=== PATIENT | female | born 1965 | race American Indian/Alaskan Native ===

== ENCOUNTER 2017-07-11 12:48 | Outpatient (CLI) | payer BC, OTHER ==
--- NOTE | 2017-07-11 13:27 | Mammography Report ---
BILATERAL DIGITAL SCREENING MAMMOGRAM with CAD: CLINICAL: Routine screening. COMPARISON:03/31/15 FINDINGS: The breasts are almost entirely fatty. No mass, architectural distortion or suspicious calcifications. IMPRESSION: No mammographic evidence of malignancy. BI-RADS CATEGORY: 1 - - Negative RECOMMENDATION: Routine mammographic screening in one year. COMMENT: Patient follow-up letters are generated by our [employer] application.
== END 2017-07-11 12:49 | disposition home or self-care (01) ==
LOC: MAMMO 12:48
PROVIDERS: ATTEND Family Medicine
DX: Z12.31 Encounter for screening mammogram for malignant neoplasm of breast (principal)
CPT/HCPCS: 77067; G0202

== ENCOUNTER 2019-07-16 12:47 | Outpatient (CLI) | payer BC ==
--- NOTE | 2019-07-16 15:13 | Mammography Report ---
DIGITAL SCREENING MAMMOGRAM WITH CAD, 07/16/2019 INDICATION: Routine screening mammography. TECHNIQUE: Digital bilateral 2D mammography was obtained in the craniocaudal and mediolateral obliq ue projections. This examination was interpreted with the benefit of Computer-Aided Detection analysi s. COMPARISON: 07/10/2018 FINDINGS: Breast Density: The breasts are almost entirely fatty. There is no evidence of dominant mass, suspicious calcifications or architectural distortion in eithe r breast. IMPRESSION: No mammographic evidence of malignancy. Follow up recommendation: Routine yearly BI-RADS Category 1: Negative. A "normal" or negative report should not discourage follow up or biopsy of a clinically significant f inding. A written summary of these findings will be mailed to the patient. The patient will be entered into a mammography reporting system which will generate a reminder letter for the patient's next appointmen t at the appropriate interval. The [employer] recommends yearly mammograms starting at age 40 and continuing as l sarkis as a woman is in good health. Breast MRI is recommended for women with an approximate 20-25% or greater lifetime risk of breast cancer, including women with a strong family history of breast or ova racquel cancer or who have been treated for Hodgkin's disease. Signer Name: Mick Diaz MD Signed: 07/16/2019 3:08 PM Workstation Name: [id number]
== END 2019-07-16 12:48 | disposition home or self-care (01) ==
LOC: MAMMO 12:47
PROVIDERS: ATTEND Family Medicine
DX: Z12.31 Encounter for screening mammogram for malignant neoplasm of breast (principal)
CPT/HCPCS: 77067

== ENCOUNTER 2020-01-27 10:53 | Inpatient (IN) | payer BC ==
[2020-01-27] MEDS ORDERED: SODIUM CHLORIDE 0.9% 1000 ML 1,000 ML IV ONE (12:23)
[2020-01-27] MEDS ORDERED: ONDANSETRON 4 MG/2 ML INJ IV ONE ×2 (12:23→15:56)
[2020-01-27] MEDS ORDERED: MORPHINE 4 MG/1 ML INJ IV ONE (12:23)
[2020-01-27 13:06] LABS: Basophils % (Auto) 0.2 % (0.0-1.8); Eosinophils % (Auto) 0.1 % (0.0-4.3); Hematocrit 44.2 % (30.3-42.9); Hemoglobin 14.6 gm/dl (10.1-14.3); Lymphocytes # (Auto) 0.9 K/mm3 (1.2-5.4); Lymphocytes % (Auto) 11.8 % (13.4-35.0); Mean Corpuscular HGB Conc 33 % (30-34); Mean Corpuscular Volume 81 fl (79-97); Monocytes # (Auto) 0.2 K/mm3 (0.0-0.8); Monocytes % (Auto) 2.4 % (0.0-7.3); Platelet Count 267 K/mm3 (140-440); Red Blood Count 5.44 M/mm3 (3.65-5.03); Red Cell Distribution Width 14.6 % (13.2-15.2)
--- NOTE | 2020-01-27 13:23 | Emergency Department Report ---
ED Abdominal Pain HPI - General Chief Complaint: Abdominal Pain Stated Complaint: ABDOMINAL PAIN Time Seen by Provider: 01/27/20 12:18 Source: patient Mode of arrival: Ambulatory Limitations: No Limitations - History of Present Illness Initial Comments: Patient is a 54-year-old female presents emergency room with complaints of upper abdominal pain that began last night. She states it feels like a throbbing pain. She has associated nausea and one episode of vomiting last night. She denies any diarrhea, fever, urinary symptoms. She states that she had a normal bowel movement last night. She has a past abdominal surgical history of hysterectomy. She has a past medical history of hypertension. She denies any allergies to medications. She states that she rarely drinks alcohol and the last time she had alcohol was on Mother's Day. Severity scale (0 -10): 10 - Related Data Home Medications Medication Instructions Recorded Confirmed Last Taken Triamterene-Hctz 37.5-25 mg Cp 1 tab PO DAILY 01/27/20 01/27/20 1 Day Ago ~01/26/20 Allergies Allergy/AdvReac Type Severity Reaction Status Date / Time No Known Allergies Allergy Unverified 03/30/14 11:46 ED Review of Systems ROS: Stated complaint: ABDOMINAL PAIN Other details as noted in HPI Comment: All other systems reviewed and negative ED Past Medical Hx - Past Medical History Previous Medical History?: No - Surgical History Past Surgical History?: Yes Additional Surgical History: hysterectomy - Medications Home Medications: Home Medications Medication Instructions Recorded Confirmed Last Taken Type Triamterene-Hctz 37.5-25 mg Cp 1 tab PO DAILY 01/27/20 01/27/20 1 Day Ago History ~01/26/20 ED Physical Exam - General Limitations: No Limitations General appearance: alert, in no apparent distress - Head Head exam: Present: atraumatic, normocephalic - Eye Eye exam: Present: normal appearance - ENT ENT exam: Present: mucous membranes moist - Respiratory Respiratory exam: Present: normal lung sounds bilaterally. Absent: respiratory distress, wheezes, rales, rhonchi, stridor, chest wall tenderness, accessory muscle use, decreased breath sounds, prolonged expiratory - Cardiovascular Cardiovascular Exam: Present: regular rate, normal rhythm, normal heart sounds. Absent: systolic murmur, diastolic murmur, rubs, gallop - GI/Abdominal GI/Abdominal exam: Present: soft, distended, tenderness (generalized upper), hypoactive bowel sounds, other (abdomen feels firm). Absent: guarding, rebound - Neurological Exam Neurological exam: Present: alert, oriented X3 - Psychiatric Psychiatric exam: Present: normal affect, normal mood - Skin Skin exam: Present: warm, dry, intact ED Course Vital Signs 01/27/20 01/27/20 01/27/20 12:18 17:22 17:38 Temperature 98.8 F Pulse Rate 85 73 90 Respiratory 16 18 Rate Blood Pressure 185/100 Blood Pressure 198/99 156/94 [Left] O2 Sat by Pulse 95 97 Oximetry 01/27/20 18:00 Temperature Pulse Rate 89 Respiratory 18 Rate Blood Pressure Blood Pressure 159/78 [Left] O2 Sat by Pulse 98 Oximetry - Consultations Consultation #1: 01/27/20 15:[address] Guerrero, GI who states to admit patient to hospitalist service, give patient IV fluids, n.p.o., will most likely perform MRCP, states could possibly related to gallstone pancreatitis but will do further work-up while admitted 01/27/20 15:[address] Juares, hospitalist who will accept and resume care of patient, will admit patient to the hospital ED Medical Decision Making - Lab Data Result diagrams: 01/27/20 12:36 01/27/20 12:36 Lab Results 01/27/20 01/27/20 01/27/20 Range/Units 12:36 12:36 12:36 WBC 7.5 (4.5-11.0) K/mm3 RBC 5.44 H (3.65-5.03) M/mm3 Hgb 14.6 H (10.1-14.3) gm/dl Hct 44.2 H (30.3-42.9) % MCV 81 (79-97) fl MCH 27 L (28-32) pg MCHC 33 (30-34) % RDW 14.6 (13.2-15.2) % Plt Count 267 (140-440) K/mm3 Lymph % (Auto) 11.8 L (13.4-35.0) % [place] % (Auto) 2.4 (0.0-7.3) % Eos % (Auto) 0.1 (0.0-4.3) % Baso % (Auto) 0.2 (0.0-1.8) % Lymph # 0.9 L (1.2-5.4) K/mm3 [place] # 0.2 (0.0-0.8) K/mm3 Eos # 0.0 (0.0-0.4) K/mm3 Baso # 0.0 (0.0-0.1) K/mm3 Seg Neutrophils % 85.5 H (40.0-70.0) % Seg Neutrophils # 6.5 (1.8-7.7) K/mm3 Sodium 140 (137-145) mmol/L Potassium 3.8 (3.6-5.0) mmol/L Chloride 103.5 (98-107) mmol/L Carbon Dioxide 25 (22-30) mmol/L Anion Gap 15 mmol/L BUN 12 (7-17) mg/dL Creatinine 0.6 L (0.7-1.2) mg/dL Estimated GFR > 60 ml/min BUN/Creatinine Ratio 20 % Glucose 128 H (65-100) mg/dL Lactic Acid 1.40 (0.7-2.0) mmol/L Calcium 9.5 (8.4-10.2) mg/dL Total Bilirubin 2.50 H (0.1-1.2) mg/dL AST 383 H (5-40) units/L ALT 372 H (7-56) units/L Alkaline Phosphatase 217 H (35-129) units/L Total Protein 7.0 (6.3-8.2) g/dL Albumin 4.1 (3.9-5) g/dL Albumin/Globulin Ratio 1.4 % Lipase 2069 H (13-60) units/L - Radiology Data Radiology results: report reviewed CT ABDOMEN AND PELVIS WITH CONTRAST INDICATION / CLINICAL INFORMATION: upper abd pain, n/v. TECHNIQUE: Axial CT images were obtained through the abdomen and pelvis after 100 cc Omnipaque 300 milligrams percent IV contrast. All CT scans at this location are performed using CT dose reduction for ALARA by means of automated exposure control. COMPARISON: None available. FINDINGS: LOWER CHEST: Diffuse prominent interstitial markings are present. LIVER: No significant abnormality. GALLBLADDER: No significant abnormality. BILE DUCTS: Mild dilatation of the biliary ducts present. The common bile duct measures 1.2 cm PANCREAS: Small amount of fluid with reticulation of fat surrounding the pancreas SPLEEN: No significant abnormality. ADRENALS: No significant abnormality. RIGHT KIDNEY and URETER: No significant abnormality. LEFT KIDNEY and URETER: No significant abnormality. STOMACH and SMALL BOWEL: No significant abnormality. COLON: No significant abnormality. APPENDIX: No significant abnormality. PERITONEUM: No free fluid. No free air. No fluid collection. LYMPH NODES: No significant adenopathy. AORTA and ARTERIES: No significant abnormality. IVC and VEINS: No significant abnormality. URINARY BLADDER: No significant abnormality. REPRODUCTIVE ORGANS: No significant abnormality. ADDITIONAL FINDINGS: None. SKELETAL SYSTEM: No significant abnormality. IMPRESSION: 1. Inflammatory changes right upper quadrant-mid and upper quadrant with dilatation of the biliary duct system, acute pancreatitis is a concern. Correlation with lipase is recommended Signer Name: Elvis Turner MD Signed: 01/27/2020 2:56 PM Workstation Name: [id number] Transcribed By: CLIFTON Dictated By: Elvis Turner MD Electronically Authenticated By: Elvis Turner MD Signed Date/Time: 01/27/20 1456 DD/ 1438 TD/TT: - Medical Decision Making Patient is a 54-year-old female presents emergency room with complaints of upper abdominal pain that began last night. She states it feels like a throbbing pain. She has associated nausea and one episode of vomiting last night. She denies any diarrhea, fever, urinary symptoms. She states that she had a normal bowel movement last night. She has a past abdominal surgical history of hysterectomy. She has a past medical history of hypertension. She denies any allergies to medications. She states that she rarely drinks alcohol and the last time she had alcohol was on Mother's Day. VSS. on exam: Generalized upper tenderness palpation, abdomen is distended and firm, no guarding, no rebound, bowel sounds are hypoactive. Labs significant for elevated LFTs and elevated lipase. CT abd pelvis with IV contrast: 1. Inflammatory changes right upper quadrant-mid and upper quadrant with dilatation of the biliary duct system, acute pancreatitis is a concern. Correlation with lipase is recommended. Patient given IV fluids, pain medication, nausea medication. Spoke to Dr. Guerrero GI who states to admit patient to hospitalist service, give patient IV fluids, n.p.o., will most likely perform MRCP, states could possibly related to gallstone pancreatitis but will do further work-up while admitted. Spoke to Dr. Juares, hospitalist who will accept and resume care of patient, will admit patient to the hospital - Differential Diagnosis pancreatitis, obstruction, cholecystitis, cholelithiasis, choleldocholithia Critical care attestation.: If time is entered above; I have spent that time in minutes in the direct care of this critically ill patient, excluding procedure time. ED Disposition Clinical Impression: Dilated bile duct, Elevated LFTs Pancreatitis Qualifiers: Chronicity: acute Pancreatitis type: unspecified pancreatitis type Acute pancreatitis complication: no infection or necrosis Qualified Code(s): K85.90 - Acute pancreatitis without necrosis or infection, unspecified Abdominal pain Qualifiers: Abdominal location: epigastric Qualified Code(s): R10.13 - Epigastric pain Nausea & vomiting Qualifiers: Vomiting type: unspecified Vomiting Intractability: non-intractable Qualified Code(s): R11.2 - Nausea with vomiting, unspecified Disposition: DC-09 OP ADMIT IP TO THIS HOSP Is pt being admited?: Yes Does the pt Need Aspirin: No Condition: Fair Time of Disposition: 15:57
[2020-01-27 13:39] LABS: Alanine Aminotransferase 372 units/L (7-56); Albumin 4.1 g/dL (3.9-5); BUN/Creatinine Ratio 20; Blood Urea Nitrogen 12 mg/dL (7-17); Calcium 9.5 mg/dL (8.4-10.2); Hemolysis Index 15
--- NOTE | 2020-01-27 15:00 | Cat Scan Report ---
CT ABDOMEN AND PELVIS WITH CONTRAST INDICATION / CLINICAL INFORMATION: upper abd pain, n/v. TECHNIQUE: Axial CT images were obtained through the abdomen and pelvis after 100 cc Omnipaque 300 milligrams pe rcent IV contrast. All CT scans at this location are performed using CT dose reduction for ALARA by means of automated exposure control. COMPARISON: None available. FINDINGS: LOWER CHEST: Diffuse prominent interstitial markings are present. LIVER: No significant abnormality. GALLBLADDER: No significant abnormality. BILE DUCTS: Mild dilatation of the biliary ducts present. The common bile duct measures 1.2 cm PANCREAS: Small amount of fluid with reticulation of fat surrounding the pancreas SPLEEN: No significant abnormality. ADRENALS: No significant abnormality. RIGHT KIDNEY and URETER: No significant abnormality. LEFT KIDNEY and URETER: No significant abnormality. STOMACH and SMALL BOWEL: No significant abnormality. COLON: No significant abnormality. APPENDIX: No significant abnormality. PERITONEUM: No free fluid. No free air. No fluid collection. LYMPH NODES: No significant adenopathy. AORTA and ARTERIES: No significant abnormality. IVC and VEINS: No significant abnormality. URINARY BLADDER: No significant abnormality. REPRODUCTIVE ORGANS: No significant abnormality. ADDITIONAL FINDINGS: None. SKELETAL SYSTEM: No significant abnormality. IMPRESSION: 1. Inflammatory changes right upper quadrant-mid and upper quadrant with dilatation of the biliary du ct system, acute pancreatitis is a concern. Correlation with lipase is recommended Signer Name: Elvis Turner MD Signed: 01/27/2020 2:56 PM Workstation Name: [id number], [id number]
[2020-01-27] MEDS ORDERED: HYDROmorphone 1 MG/1 ML INJ IV ONE (15:56)
--- NOTE | 2020-01-27 15:56 | History and Physical Report ---
History of Present Illness Chief complaint: My stomach is hurting me History of present illness: 54 YO Female presents to the ED for evaluation of abdominal pain. Patient states that her pain began last night. Patient states that pain is currently 10/10, constant, throbbing in nature, associated with nausea, and one episode of vomiting overnight. Patient acknowledges inability to ingest oral diet without worsening symptoms, patient also acknowledges normal bowel movement overnight. Patient transported to [facility] via private vehicle for further care and evaluation. Patient seen and evaluated in the emergency department. Lab and imaging studies reviewed. Patient underwent CT scan of the abdomen and pelvis and was found to have evidence of gallstone pancreatitis, as well as accelerated hypertension, and elevated liver function test. Patient admitted to medical floor for further care due to increased risk of hepatic decompensation. GI team consulted in ED. Patient denies fever, chills, chest pain, palpitations, productive cough, skin rash, hematemesis, bright red blood per rectum, skin rash, recent ill contacts, alcohol use, NSAID use, or known exposure to COVID-19. Patient treated with bowel rest, IV fluid resuscitation therapy, and supportive care. Past History Past Medical History: No medical history Past Surgical History: hysterectomy Social history: , lives with family. denies: smoking, alcohol abuse, prescription drug abuse Family history: hypertension Medications and Allergies Allergies Allergy/AdvReac Type Severity Reaction Status Date / Time No Known Allergies Allergy Unverified 03/30/14 11:46 Review of Systems Constitutional: no weight loss, no weight gain, no fever, no chills, no sweats Ears, nose, mouth and throat: no ear pain, no ear discharge, no tinnitis, no decreased hearing, no nose pain, no nasal congestion Breasts: no change in shape, no swelling, no mass Cardiovascular: no chest pain, no orthopnea, no palpitations, no rapid/irregular heart beat, no edema, no syncope Respiratory: no cough, no cough with sputum, no excessive sputum, no hemoptysis, no shortness of breath Gastrointestinal: abdominal pain, nausea, vomiting, no coffee ground emesis, no BRBPR, no melena, no heartburn, no indigestion Genitourinary Female: no pelvic pain, no flank pain, no menorrhagia, no dysuria, no urinary frequency, no urgency Rectal: no pain, no incontinence, no bleeding Musculoskeletal: no neck stiffness, no neck pain, no shooting arm pain, no arm numbness/tingling, no low back pain, no shooting leg pain, no leg numbness/tingling Integumentary: no rash, no pruritis, no redness, no sores, no wounds, no jaundice Neurological: no transient paralysis, no paralysis, no weakness, no parathesias, no numbness, no tingling, no seizures, no syncope Psychiatric: no anxiety, no memory loss, no change in sleep habits, no sleep disturbances, no insomnia, no hypersomnia, no change in appetite Endocrine: no cold intolerance, no heat intolerance, no polyphagia, no excessive thirst, no polydipsia, no polyuria, no nocturia, no excessive sweating Hematologic/Lymphatic: no easy bruising, no easy bleeding, no lymphadenopathy, no lymphedema Allergic/Immunologic: no urticaria, no allergic rhinitis, no persistent infect ions, no anaphylaxis Exam - Constitutional Vitals: Temp Pulse Resp BP Pulse Ox 98.8 F 85 16 198/99 95 01/27/20 12:18 01/27/20 12:18 01/27/20 12:18 01/27/20 12:18 01/27/20 12:18 General appearance: Present: mild distress - EENT Eyes: Present: PERRL ENT: hearing intact, clear oral mucosa - Neck Neck: Present: supple, normal ROM - Respiratory Respiratory effort: normal Respiratory: bilateral: CTA - Cardiovascular Heart Sounds: Present: S1 & S2. Absent: rub, click - Extremities Extremities: pulses symmetrical, No edema Peripheral Pulses: within normal limits - Abdominal General gastrointestinal: Present: soft, tender, non-distended, normal bowel sounds Localized gastrointestinal: tender: RUQ Female genitourinary: Present: normal - Integumentary Integumentary: Present: clear, warm, dry - Musculoskeletal Musculoskeletal: gait normal, strength equal bilaterally - Psychiatric Psychiatric: appropriate mood/affect, intact judgment & insight - Neurologic Neurologic: CNII-XII intact, moves all extremities Results - Labs CBC & Chem 7: 01/27/20 12:36 01/27/20 12:36 Labs: Abnormal lab results 01/27/20 01/27/20 Range/Units 12:36 12:36 RBC 5.44 H (3.65-5.03) M/mm3 Hgb 14.6 H (10.1-14.3) gm/dl Hct 44.2 H (30.3-42.9) % MCH 27 L (28-32) pg Lymph % (Auto) 11.8 L (13.4-35.0) % Lymph # 0.9 L (1.2-5.4) K/mm3 Seg Neutrophils % 85.5 H (40.0-70.0) % Creatinine 0.6 L (0.7-1.2) mg/dL Glucose 128 H (65-100) mg/dL Total Bilirubin 2.50 H (0.1-1.2) mg/dL AST 383 H (5-40) units/L ALT 372 H (7-56) units/L Alkaline Phosphatase 217 H (35-129) units/L Lipase 2069 H (13-60) units/L Assessment and Plan - Patient Problems (1) Acute gallstone pancreatitis Current Visit: Yes Status: Acute Plan to address problem: CT scan of the abdomen and pelvis, CBC, CMP, gastroenterology team consulted in ED, IV fluid resuscitation therapy, further investigational studies as per GI team, bowel rest, pain control, supportive care. (2) Accelerated hypertension Current Visit: Yes Status: Acute Plan to address problem: IV hydralazine every 6 hours as needed for systolic blood pressure greater than or equal to 155, supportive care (3) Elevated LFTs Current Visit: Yes Status: Acute Plan to address problem: CMP, supportive care, repeat CMP in a.m. (4) Nausea & vomiting Current Visit: Yes Status: Acute Qualifiers: Vomiting type: unspecified Vomiting Intractability: non-intractable Qualified Code(s): R11.2 - Nausea with vomiting, unspecified Plan to address problem: Zofran, as needed, bowel rest, IV fluid resuscitation therapy, supportive care. (5) DVT prophylaxis Current Visit: Yes Status: Acute Plan to address problem: SCD to bilateral lower extremities while in bed, patient is ambulatory.
[2020-01-27] MEDS ORDERED: ONDANSETRON 4 MG/2 ML INJ IV PRN (16:02)
--- NOTE | 2020-01-27 16:41 | Gastroenterology Consultation ---
History of Present Illness - Reason for Consult Consult date: 01/27/20 acute pancreatitis Requesting physician: MICHELLE MULLER - History of Present Illness The patient is a 54 yo aaf who presents with 1 day history of abdominal pain. Pt was in her usual state of health until sudden onset of mid abd pain yesterday. this worsened overnight and radiates to her epigastric abdomen. Denies prior similar symptoms. Patient found to have elevated liver enzymes and lipase > [address] showing signs of acute pancreatitis and biliary dilatation. Afebrile, normal wbc with stable vital signs. Past History Past Medical History: No medical history Past Surgical History: hysterectomy Social history: no significant social history Family history: no significant family history Medications and Allergies Allergies Allergy/AdvReac Type Severity Reaction Status Date / Time No Known Allergies Allergy Unverified 03/30/14 11:46 Active Meds: Active Medications Acetaminophen (Tylenol) 650 mg PO Q4H PRN PRN Reason: Pain MILD(1-3)/Fever >100.5/MIRELES Hydralazine HCl (Apresoline) 10 mg IV Q6HR PRN PRN Reason: Hypertension Hydromorphone HCl (Dilaudid) 0.25 mg IV Q3H PRN PRN Reason: Pain , Severe (7-10) Ondansetron HCl (Zofran) 4 mg IV Q8H PRN PRN Reason: Nausea And Vomiting Sodium Chloride (Sodium Chloride Flush Syringe 10 Ml) 10 ml IV BID DENA Sodium Chloride (Sodium Chloride Flush Syringe 10 Ml) 10 ml IV PRN PRN PRN Reason: LINE FLUSH reviewed/updated patient's home and current medications Review of Systems - Review of Systems All systems: negative (per HPI) Exam - Constitutional Vital Signs: Temp Pulse Resp BP Pulse Ox 98.8 F 85 16 198/99 95 01/27/20 12:18 01/27/20 12:18 01/27/20 12:18 01/27/20 12:18 01/27/20 12:18 General appearance: no acute distress, other (overweight female, resting comfortably) - EENT Eyes: PERRL, EOM intact - Respiratory Respiratory effort: normal Respiratory: bilateral: CTA - Cardiovascular Rhythm: regular Heart Sounds: Present: S1 & S2 Extremities: No edema - Gastrointestinal General gastrointestinal: Present: soft, tender (mild epigastric ttp), non- distended - Neurologic Neurological: alert and oriented x3 - Psychiatric Psychiatric: appropriate mood/affect - Labs CBC & Chem 7: 01/27/20 12:36 01/27/20 12:36 Lab Results: Laboratory Results - last 24 hr 01/27/20 01/27/20 01/27/20 12:36 12:36 12:36 WBC 7.5 RBC 5.44 H Hgb 14.6 H Hct 44.2 H MCV 81 MCH 27 L MCHC 33 RDW 14.6 Plt Count 267 Lymph % (Auto) 11.8 L [place] % (Auto) 2.4 Eos % (Auto) 0.1 Baso % (Auto) 0.2 Lymph # 0.9 L [place] # 0.2 Eos # 0.0 Baso # 0.0 Seg Neutrophils % 85.5 H Seg Neutrophils # 6.5 Sodium 140 Potassium 3.8 Chloride 103.5 Carbon Dioxide 25 Anion Gap 15 BUN 12 Creatinine 0.6 L Estimated GFR > 60 BUN/Creatinine Ratio 20 Glucose 128 H Lactic Acid 1.40 Calcium 9.5 Total Bilirubin 2.50 H AST 383 H ALT 372 H Alkaline Phosphatase 217 H Total Protein 7.0 Albumin 4.1 Albumin/Globulin Ratio 1.4 Lipase 2069 H - Imaging CT Scan: report reviewed Assessment and Plan 1. Biliary pancreatitis - cont IVF's/pain control/supportive care for acute pancreatitis; dilated ducts on ct scan and given pattern of liver enzyme elevation, will obtain mrcp to evaluate for retained stones/obstructive process. No signs of cholangitis at this time. trend labs and will follow. will need eventual surgery consult for ccy once improved.
[2020-01-27 17:13] LABS: Bilirubin,Urine NEG (Negative); Blood,Urine NEG (Negative); Color,Urine Yellow (Yellow); Mucus,Urine FEW /HPF; Protein,Urine <15 mg/dL mg/dL (Negative); Urobilinogen,Urine < 2.0 mg/dL (<2.0)
[2020-01-27] MEDS ORDERED: HYDROmorphone 1 MG/1 ML INJ ONE (17:18)
[2020-01-27] MEDS ORDERED: hydrALAZINE 20 MG/1 ML INJ ONE (17:19)
[2020-01-27] MEDS: hydrALAZINE 20 MG/1 ML INJ IV PRN (17:22)
[2020-01-27] MEDS: HYDROmorphone 1 MG/1 ML INJ IV PRN ×2 (17:26→22:44)
[2020-01-28] MEDS: HYDROmorphone 1 MG/1 ML INJ IV PRN ×5 (03:10→22:07)
[2020-01-28 05:22] LABS: Basophils % (Auto) 0.3 % (0.0-1.8); Eosinophils % (Auto) 0.2 % (0.0-4.3); Hematocrit 40.2 % (30.3-42.9); Hemoglobin 13.3 gm/dl (10.1-14.3); Lymphocytes # (Auto) 1.1 K/mm3 (1.2-5.4); Lymphocytes % (Auto) 11.6 % (13.4-35.0); Mean Corpuscular HGB Conc 33 % (30-34); Mean Corpuscular Volume 81 fl (79-97); Monocytes # (Auto) 0.4 K/mm3 (0.0-0.8); Monocytes % (Auto) 4.2 % (0.0-7.3); Platelet Count 270 K/mm3 (140-440); Red Blood Count 4.93 M/mm3 (3.65-5.03); Red Cell Distribution Width 15.1 % (13.2-15.2)
[2020-01-28 05:39] LABS: BUN/Creatinine Ratio 22; Blood Urea Nitrogen 13 mg/dL (7-17); Hemolysis Index 14
--- NOTE | 2020-01-28 11:01 | Magnetic Resonance Report ---
MRCP INDICATION: Biliary dilatation elevated liver enzymes, nausea vomiting and upper abdominal pain TECHNIQUE: Axial and coronal imaging is performed. Radial MRCP images were obtained. FINDINGS: There is a filling defect noted in the distal common duct. The common bile duct is dilated measuring approximately 13 mm in diameter. There is mild central intrahepatic biliary dilatation. There is cholelithiasis. There is stranding in the fat around the pancreas characteristic of pancreatitis. There is some fluid noted along the right anterior pararenal fascia as well. There is mild perinephric edema. . There is a small amount of left pleural fluid. IMPRESSION: There is a small filling defect in the distal common duct possibly representing a small stone. There is cholelithiasis. There is edema and around the pancreas and there is edema in the right anterior pararenal fascia ivan acteristic of pancreatitis. There is a small amount of free fluid adjacent to the liver and there is mild perinephric edema. Signer Name: Mark Anthony Ross MD Signed: 01/28/2020 10:57 AM Workstation Name: [id number]
[2020-01-28] MEDS: ACETAMINOPHEN 325 MG TAB PO PRN ×2 (12:25→22:06)
[2020-01-28 15:43] LABS: Albumin 3.7 g/dL (3.9-5); Bilirubin,Direct 4.1 mg/dL (0-0.2)
--- NOTE | 2020-01-28 16:21 | Gastroenterology Progress Note ---
Assessment and Plan 1. Biliary pancreatitis on presentation, now concern for possible cholangitis with fevers, increasing t bili and biliary dilatation/cbd stone on mrcp. zosyn started, cont IVF's, and keep npo as patient will likely need ercp (plan for tomorrow if remains HD stable). Subjective Date of service: 01/28/20 Principal diagnosis: biliary pancreatitis Interval history: pt with worsening abd pain today; developed fevers as well. Objective - Constitutional Vitals: Temp Pulse Resp BP Pulse Ox 101.0 F H 109 H 24 145/76 93 01/28/20 11:15 01/28/20 11:15 01/28/20 11:15 01/28/20 11:15 01/28/20 11:15 General appearance: no acute distress, obese - Respiratory Respiratory effort: normal Respiratory: bilateral: CTA - Cardiovascular Rhythm: regular Heart Sounds: Present: S1 & S2 - Gastrointestinal General gastrointestinal: Present: soft, tender (+ epigastric/ruq ttp) - Neurologic Neurological: alert and oriented x3 - Labs CBC & Chem 7: 01/28/20 04:24 01/28/20 04:24 Labs: Laboratory Results - last 24 hr 01/27/20 01/28/20 01/28/20 16:59 04:24 04:24 WBC 9.1 RBC 4.93 Hgb 13.3 Hct 40.2 MCV 81 MCH 27 L MCHC 33 RDW 15.1 Plt Count 270 Lymph % (Auto) 11.6 L [place] % (Auto) 4.2 Eos % (Auto) 0.2 Baso % (Auto) 0.3 Lymph # 1.1 L [place] # 0.4 Eos # 0.0 Baso # 0.0 Seg Neutrophils % 83.7 H Seg Neutrophils # 7.6 Sodium 144 Potassium 3.6 Chloride 106.8 Carbon Dioxide 26 Anion Gap 15 BUN 13 Creatinine 0.6 L Estimated GFR > 60 BUN/Creatinine Ratio 22 Glucose 110 H Calcium 9.0 Total Bilirubin Direct Bilirubin Indirect Bilirubin AST ALT Alkaline Phosphatase Total Protein Albumin Albumin/Globulin Ratio Urine Color Yellow Urine Turbidity Clear Urine pH 5.0 Ur Specific [place] 1.020 Urine Protein <15 mg/dl Urine Glucose (UA) Neg Urine Ketones Neg Urine Blood Neg Urine Nitrite Neg Urine Bilirubin Neg Urine Urobilinogen < 2.0 Ur Leukocyte Esterase Neg Urine WBC (Auto) 2.0 Urine RBC (Auto) 2.0 U Epithel Cells (Auto) 2.0 Urine Mucus Few 01/28/20 15:08 WBC RBC Hgb Hct MCV MCH MCHC RDW Plt Count Lymph % (Auto) [place] % (Auto) Eos % (Auto) Baso % (Auto) Lymph # [place] # Eos # Baso # Seg Neutrophils % Seg Neutrophils # Sodium Potassium Chloride Carbon Dioxide Anion Gap BUN Creatinine Estimated GFR BUN/Creatinine Ratio Glucose Calcium Total Bilirubin 5.10 H Direct Bilirubin 4.1 H Indirect Bilirubin 1.0 AST 178 H ALT 311 H Alkaline Phosphatase 271 H Total Protein 7.2 Albumin 3.7 L Albumin/Globulin Ratio 1.1 Urine Color Urine Turbidity Urine pH Ur Specific [place] Urine Protein Urine Glucose (UA) Urine Ketones Urine Blood Urine Nitrite Urine Bilirubin Urine Urobilinogen Ur Leukocyte Esterase Urine WBC (Auto) Urine RBC (Auto) U Epithel Cells (Auto) Urine Mucus
[2020-01-28] MEDS ORDERED: HYDROmorphone 1 MG/1 ML INJ IV ONE (16:44)
[2020-01-28] MEDS: PIPERACIL/TAZOBACTA 4.5/NS 100 4.5 GM/100 ML VIAL IV SCH (18:25)
--- NOTE | 2020-01-28 20:10 | Progress Note ---
Assessment and Plan - Patient Problems (1) Acute gallstone pancreatitis Current Visit: Yes Status: Acute Plan to address problem: CT scan of the abdomen and pelvis reviewed, CBC, CMP, gastroenterology team consulted in ED, IV fluid resuscitation therapy, further investigational studies as per GI team, bowel rest, pain control, supportive care. Patient is pending ERCP in a.m. as per GI team (2) Accelerated hypertension Current Visit: Yes Status: Acute Plan to address problem: IV hydralazine every 6 hours as needed for systolic blood pressure greater than or equal to 155, supportive care (3) Elevated LFTs Current Visit: Yes Status: Acute Plan to address problem: CMP, supportive care, repeat CMP in a.m. (4) Nausea & vomiting Current Visit: Yes Status: Acute Qualifiers: Vomiting type: unspecified Vomiting Intractability: non-intractable Qualified Code(s): R11.2 - Nausea with vomiting, unspecified Plan to address problem: Zofran, as needed, bowel rest, IV fluid resuscitation therapy, supportive care. (5) DVT prophylaxis Current Visit: Yes Status: Acute Plan to address problem: SCD to bilateral lower extremities while in bed, patient is ambulatory. History Interval history: 54 YO Female HD #2 with Gallstone Pancreatitis, Elevated LFT's, complicated by nausea and vomiting. Patient states that her pain is subjectively somewhat worse today. Patient denies fever, chills, chest pain, palpitations, productive cough, recent ill contacts. Patient is still n.p.o. and acknowledges intermittent nausea. Patient liver function tests are improving somewhat however patient bilirubin is elevated. Patient is pending ERCP in a.m. as per GI team. Patient acknowledges worsening abdominal pain. Hospitalist Physical - Constitutional Vitals: Temp Pulse Resp BP Pulse Ox 99.0 F 102 H 24 165/75 94 01/28/20 16:53 01/28/20 16:53 01/28/20 16:53 01/28/20 16:53 01/28/20 16:53 General appearance: Present: mild distress, obese - EENT Eyes: Present: PERRL ENT: hearing intact - Neck Neck: Present: supple - Respiratory Respiratory effort: normal Respiratory: bilateral: CTA - Cardiovascular Rhythm: regular Heart Sounds: Present: S1 & S2 - Extremities Extremities: no ischemia Peripheral Pulses: within normal limits - Abdominal General gastrointestinal: soft, tender, non-distended, no mass, no hernia - Integumentary Integumentary: Present: clear, warm, dry - Psychiatric Psychiatric: appropriate mood/affect, cooperative - Neurologic Neurologic: CNII-XII intact Results - Labs CBC & Chem 7: 01/28/20 04:24 01/28/20 04:24 Labs: Laboratory Last Values WBC 9.1 K/mm3 (4.5-11.0) 01/28/20 04:24 RBC 4.93 M/mm3 (3.65-5.03) 01/28/20 04:24 Hgb 13.3 gm/dl (10.1-14.3) 01/28/20 04:24 Hct 40.2 % (30.3-42.9) 01/28/20 04:24 MCV 81 fl (79-97) 01/28/20 04:24 MCH 27 pg (28-32) L 01/28/20 04:24 MCHC 33 % (30-34) 01/28/20 04:24 RDW 15.1 % (13.2-15.2) 01/28/20 04:24 Plt Count 270 K/mm3 (140-440) 01/28/20 04:24 Lymph % (Auto) 11.6 % (13.4-35.0) L 01/28/20 04:24 [place] % (Auto) 4.2 % (0.0-7.3) 01/28/20 04:24 Eos % (Auto) 0.2 % (0.0-4.3) 01/28/20 04:24 Baso % (Auto) 0.3 % (0.0-1.8) 01/28/20 04:24 Lymph # 1.1 K/mm3 (1.2-5.4) L 01/28/20 04:24 [place] # 0.4 K/mm3 (0.0-0.8) 01/28/20 04:24 Eos # 0.0 K/mm3 (0.0-0.4) 01/28/20 04:24 Baso # 0.0 K/mm3 (0.0-0.1) 01/28/20 04:24 Seg Neutrophils % 83.7 % (40.0-70.0) H 01/28/20 04:24 Seg Neutrophils # 7.6 K/mm3 (1.8-7.7) 01/28/20 04:24 Sodium 144 mmol/L (137-145) 01/28/20 04:24 Potassium 3.6 mmol/L (3.6-5.0) 01/28/20 04:24 Chloride 106.8 mmol/L (98-107) 01/28/20 04:24 Carbon Dioxide 26 mmol/L (22-30) 01/28/20 04:24 Anion Gap 15 mmol/L 01/28/20 04:24 BUN 13 mg/dL (7-17) 01/28/20 04:24 Creatinine 0.6 mg/dL (0.7-1.2) L 01/28/20 04:24 Estimated GFR > 60 ml/min 01/28/20 04:24 BUN/Creatinine Ratio 22 % 01/28/20 04:24 Glucose 110 mg/dL (65-100) H 01/28/20 04:24 Lactic Acid 1.40 mmol/L (0.7-2.0) 01/27/20 12:36 Calcium 9.0 mg/dL (8.4-10.2) 01/28/20 04:24 Total Bilirubin 5.10 mg/dL (0.1-1.2) H 01/28/20 15:08 Direct Bilirubin 4.1 mg/dL (0-0.2) H 01/28/20 15:08 Indirect Bilirubin 1.0 mg/dL 01/28/20 15:08 AST 178 units/L (5-40) H 01/28/20 15:08 ALT 311 units/L (7-56) H 01/28/20 15:08 Alkaline Phosphatase 271 units/L (35-129) H 01/28/20 15:08 Total Protein 7.2 g/dL (6.3-8.2) 01/28/20 15:08 Albumin 3.7 g/dL (3.9-5) L 01/28/20 15:08 Albumin/Globulin Ratio 1.1 % 01/28/20 15:08 Lipase 2069 units/L (13-60) H 01/27/20 12:36 Urine Color Yellow (Yellow) 01/27/20 16:59 Urine Turbidity Clear (Clear) 01/27/20 16:59 Urine pH 5.0 (5.0-7.0) 01/27/20 16:59 Ur Specific [place] 1.020 (1.003-1.030) 01/27/20 16:59 Urine Protein <15 mg/dl mg/dL (Negative) 01/27/20 16:59 Urine Glucose (UA) Neg mg/dL (Negative) 01/27/20 16:59 Urine Ketones Neg mg/dL (Negative) 01/27/20 16:59 Urine Blood Neg (Negative) 01/27/20 16:59 Urine Nitrite Neg (Negative) 01/27/20 16:59 Urine Bilirubin Neg (Negative) 01/27/20 16:59 Urine Urobilinogen < 2.0 mg/dL (<2.0) 01/27/20 16:59 Ur Leukocyte Esterase Neg (Negative) 01/27/20 16:59 Urine WBC (Auto) 2.0 /HPF (0.0-6.0) 01/27/20 16:59 Urine RBC (Auto) 2.0 /HPF (0.0-6.0) 01/27/20 16:59 U Epithel Cells (Auto) 2.0 /HPF (0-13.0) 01/27/20 16:59 Urine Mucus Few /HPF 01/27/20 16:59 [place]/IV: Voiding Method Toilet IV Catheter Type [Left INT / Saline Lock Antecubital] Active Medications - Current Medications Current Medications: Generic Name Dose Route Start Last Admin Trade Name Freq PRN Reason Stop Dose Admin Acetaminophen 650 mg 01/27/20 16:02 01/28/20 12:25 Tylenol PO 650 mg Q4H PRN Administration Pain MILD(1-3)/Fever >100.5/MIRELES Hydralazine HCl 10 mg 01/27/20 16:06 01/27/20 17:22 Apresoline IV 10 mg Q6HR PRN Administration Hypertension Hydromorphone HCl 0.25 mg 01/27/20 16:06 01/28/20 14:55 Dilaudid IV 0.25 mg Q3H PRN Administration Pain , Severe (7-10) Piperacillin Sod/Tazobactam Sod 4.5 gm in 100 mls @ 200 mls/hr 01/28/20 18:00 01/28/20 18:25 Zosyn/Ns 4.5gm/100ml IV 200 mls/hr Q8H DENA Administration Protocol Metronidazole 500 mg in 100 mls @ 100 mls/hr 01/28/20 22:00 Flagyl 500 Mg/100 Ml IV Q8HR DENA Protocol Ondansetron HCl 4 mg 01/27/20 16:02 Zofran IV Q8H PRN Nausea And Vomiting Sodium Chloride 10 ml 01/27/20 22:00 01/28/20 11:00 Sodium Chloride Flush Syringe 10 Ml IV 10 ml BID DENA Administration Sodium Chloride 10 ml 01/27/20 16:02 Sodium Chloride Flush Syringe 10 Ml IV PRN PRN LINE FLUSH
[2020-01-28] MEDS: hydrALAZINE 20 MG/1 ML INJ IV PRN (22:05)
[2020-01-28] MEDS: metroNIDAZOLE/NS 500 MG/100 ML 500 MG/100 ML BAG IV SCH (22:08)
[2020-01-29] MEDS: HYDROmorphone 1 MG/1 ML INJ IV PRN ×7 (02:12→23:21)
[2020-01-29] MEDS: PIPERACIL/TAZOBACTA 4.5/NS 100 4.5 GM/100 ML VIAL IV SCH ×3 (02:13→19:05)
[2020-01-29 05:50] LABS: Basophils % (Auto) 0.2 % (0.0-1.8); Eosinophils % (Auto) 0.4 % (0.0-4.3); Hematocrit 40.1 % (30.3-42.9); Lymphocytes # (Auto) 1.2 K/mm3 (1.2-5.4); Mean Corpuscular HGB Conc 32 % (30-34); Mean Corpuscular Volume 82 fl (79-97); Monocytes # (Auto) 0.6 K/mm3 (0.0-0.8); Monocytes % (Auto) 5.7 % (0.0-7.3); Platelet Count 242 K/mm3 (140-440); Red Blood Count 4.88 M/mm3 (3.65-5.03)
[2020-01-29] MEDS: metroNIDAZOLE/NS 500 MG/100 ML 500 MG/100 ML BAG IV SCH (05:58)
[2020-01-29 06:55] LABS: Alanine Aminotransferase 226 units/L (7-56); Albumin 3.6 g/dL (3.9-5); BUN/Creatinine Ratio 20; Blood Urea Nitrogen 12 mg/dL (7-17); Calcium 8.8 mg/dL (8.4-10.2); Hemolysis Index 14
--- NOTE | 2020-01-29 08:07 | Gastroenterology Progress Note ---
Assessment and Plan 1. Biliary pancreatitis - liver enzymes improving. HD stable. sx's appear better today. no urgent indication for ercp and if labs cont to improve, then ccy with IOC would be reasonable (as stone was small on mrcp and possibility it has passed given improved liver enzymes). will start clears today. cont zosyn. recommend surgery consult as she will need eventual ccy when pancreatitis improves. Subjective Date of service: 01/29/20 Principal diagnosis: biliary pancreatitis Interval history: pt reports improvement in abd pain today; low grade fevers but wbc remains within normal range. no n/v Objective - Constitutional Vitals: Temp Pulse Resp BP Pulse Ox 100.3 F H 114 H 20 150/78 92 01/29/20 05:38 01/29/20 05:38 01/29/20 05:57 01/29/20 05:38 01/29/20 05:38 General appearance: no acute distress - Respiratory Respiratory effort: normal Respiratory: bilateral: CTA - Cardiovascular Rhythm: regular Heart Sounds: Present: S1 & S2 - Gastrointestinal General gastrointestinal: Present: soft, non-tender, non-distended - Labs CBC & Chem 7: 01/29/20 05:04 01/29/20 05:04 Labs: Laboratory Results - last 24 hr 01/28/20 01/29/20 01/29/20 15:08 05:04 05:04 WBC 11.0 RBC 4.88 Hgb 13.0 Hct 40.1 MCV 82 MCH 27 L MCHC 32 RDW 15.0 Plt Count 242 Lymph % (Auto) 11.0 L [place] % (Auto) 5.7 Eos % (Auto) 0.4 Baso % (Auto) 0.2 Lymph # 1.2 [place] # 0.6 Eos # 0.0 Baso # 0.0 Seg Neutrophils % 82.7 H Seg Neutrophils # 9.1 H Sodium 145 Potassium 3.2 L [place] 84.7 L Carbon Dioxide 24 Anion Gap 19 BUN 12 Creatinine 0.6 L Estimated GFR > 60 BUN/Creatinine Ratio 20 Glucose 111 H Calcium 8.8 Total Bilirubin 5.10 H 1.30 H Direct Bilirubin 4.1 H Indirect Bilirubin 1.0 AST 178 H 94 H ALT 311 H 226 H Alkaline Phosphatase 271 H 239 H Total Protein 7.2 7.4 Albumin 3.7 L 3.6 L Albumin/Globulin Ratio 1.1 0.9 Lipase 541 H
[2020-01-29] MEDS: hydrALAZINE 20 MG/1 ML INJ IV PRN (09:31)
--- NOTE | 2020-01-29 12:02 | Progress Note ---
Assessment and Plan - Patient Problems (1) Acute gallstone pancreatitis Status: Acute Plan to address problem: Surgical team consulted, IV fluid resuscitation therapy,. Conservative care, advance diet as tolerated, GI consulted for further care, Surgery team consulted (2) Accelerated hypertension Status: Acute Plan to address problem: IV hydralazine every 6 hours as needed for systolic blood pressure greater than or equal to 155, supportive care (3) Elevated LFTs Status: Acute Plan to address problem: CMP, supportive care, repeat CMP in a.m. (4) Nausea & vomiting Status: Acute Qualifiers: Vomiting type: unspecified Vomiting Intractability: non-intractable Qualified Code(s): R11.2 - Nausea with vomiting, unspecified Plan to address problem: Zofran, as needed, bowel rest, IV fluid resuscitation therapy, supportive care. (5) DVT prophylaxis Status: Acute Plan to address problem: SCD to bilateral lower extremities while in bed, patient is ambulatory. (6) Morbid (severe) obesity due to excess calories Status: Acute Plan to address problem: Balanced diet, increased physical activity at discharge, (7) SIRS due to infectious process with acute organ dysfunction Status: Acute Plan to address problem: CBC, CMP, IV antibiotic therapy, IVF resuscitation therapy History Interval history: 54 YO Female HD #2 with Gallstone Pancreatitis, Elevated LFT's, complicated by nausea and vomiting. Patient states that her pain is somewhat better today. Patient denies fever, chills, chest pain, palpitations, productive cough, recent ill contacts. Patient tolerating clear liquids today. Hospitalist Physical - Constitutional Vitals: Temp Pulse Resp BP Pulse Ox 100.3 F H 115 H 20 175/97 92 01/29/20 05:38 01/29/20 09:31 01/29/20 05:57 01/29/20 09:31 01/29/20 05:38 General appearance: Present: mild distress, obese - EENT Eyes: Present: PERRL, EOM intact - Neck Neck: Present: supple - Respiratory Respiratory: bilateral: CTA - Cardiovascular Rhythm: regular Heart Sounds: Present: S1 & S2 - Extremities Extremities: no ischemia Peripheral Pulses: within normal limits - Abdominal General gastrointestinal: soft, tender, no splenomegaly, no mass, no hernia - Integumentary Integumentary: Present: clear, warm, dry - Psychiatric Psychiatric: appropriate mood/affect, cooperative - Neurologic Neurologic: CNII-XII intact Results - Labs CBC & Chem 7: 02/01/20 10:28 02/02/20 04:46 Labs: Laboratory Last Values WBC 11.0 K/mm3 (4.5-11.0) 01/29/20 05:04 RBC 4.88 M/mm3 (3.65-5.03) 01/29/20 05:04 Hgb 13.0 gm/dl (10.1-14.3) 01/29/20 05:04 Hct 40.1 % (30.3-42.9) 01/29/20 05:04 MCV 82 fl (79-97) 01/29/20 05:04 MCH 27 pg (28-32) L 01/29/20 05:04 MCHC 32 % (30-34) 01/29/20 05:04 RDW 15.0 % (13.2-15.2) 01/29/20 05:04 Plt Count 242 K/mm3 (140-440) 01/29/20 05:04 Lymph % (Auto) 11.0 % (13.4-35.0) L 01/29/20 05:04 [place] % (Auto) 5.7 % (0.0-7.3) 01/29/20 05:04 Eos % (Auto) 0.4 % (0.0-4.3) 01/29/20 05:04 Baso % (Auto) 0.2 % (0.0-1.8) 01/29/20 05:04 Lymph # 1.2 K/mm3 (1.2-5.4) 01/29/20 05:04 Real # 0.6 K/mm3 (0.0-0.8) 01/29/20 05:04 Eos # 0.0 K/mm3 (0.0-0.4) 01/29/20 05:04 Baso # 0.0 K/mm3 (0.0-0.1) 01/29/20 05:04 Seg Neutrophils % 82.7 % (40.0-70.0) H 01/29/20 05:04 Seg Neutrophils # 9.1 K/mm3 (1.8-7.7) H 01/29/20 05:04 Sodium 145 mmol/L (137-145) 01/29/20 05:04 Potassium 3.2 mmol/L (3.6-5.0) L 01/29/20 05:04 Chloride 84.7 mmol/L (98-107) L 01/29/20 05:04 Carbon Dioxide 24 mmol/L (22-30) 01/29/20 05:04 Anion Gap 19 mmol/L 01/29/20 05:04 BUN 12 mg/dL (7-17) 01/29/20 05:04 Creatinine 0.6 mg/dL (0.7-1.2) L 01/29/20 05:04 Estimated GFR > 60 ml/min 01/29/20 05:04 BUN/Creatinine Ratio 20 % 01/29/20 05:04 Glucose 111 mg/dL (65-100) H 01/29/20 05:04 Lactic Acid 1.40 mmol/L (0.7-2.0) 01/27/20 12:36 Calcium 8.8 mg/dL (8.4-10.2) 01/29/20 05:04 Total Bilirubin 1.30 mg/dL (0.1-1.2) H 01/29/20 05:04 Direct Bilirubin 4.1 mg/dL (0-0.2) H 01/28/20 15:08 Indirect Bilirubin 1.0 mg/dL 01/28/20 15:08 AST 94 units/L (5-40) H 01/29/20 05:04 ALT 226 units/L (7-56) H 01/29/20 05:04 Alkaline Phosphatase 239 units/L (35-129) H 01/29/20 05:04 Total Protein 7.4 g/dL (6.3-8.2) 01/29/20 05:04 Albumin 3.6 g/dL (3.9-5) L 01/29/20 05:04 Albumin/Globulin Ratio 0.9 % 01/29/20 05:04 Lipase 541 units/L (13-60) H 01/29/20 05:04 Urine Color Yellow (Yellow) 01/27/20 16:59 Urine Turbidity Clear (Clear) 01/27/20 16:59 Urine pH 5.0 (5.0-7.0) 01/27/20 16:59 Ur Specific [place] 1.020 (1.003-1.030) 01/27/20 16:59 Urine Protein <15 mg/dl mg/dL (Negative) 01/27/20 16:59 Urine Glucose (UA) Neg mg/dL (Negative) 01/27/20 16:59 Urine Ketones Neg mg/dL (Negative) 01/27/20 16:59 Urine Blood Neg (Negative) 01/27/20 16:59 Urine Nitrite Neg (Negative) 01/27/20 16:59 Urine Bilirubin Neg (Negative) 01/27/20 16:59 Urine Urobilinogen < 2.0 mg/dL (<2.0) 01/27/20 16:59 Ur Leukocyte Esterase Neg (Negative) 01/27/20 16:59 Urine WBC (Auto) 2.0 /HPF (0.0-6.0) 01/27/20 16:59 Urine RBC (Auto) 2.0 /HPF (0.0-6.0) 01/27/20 16:59 U Epithel Cells (Auto) 2.0 /HPF (0-13.0) 01/27/20 16:59 Urine Mucus Few /HPF 01/27/20 16:59 [place]/IV: Voiding Method Toilet IV Catheter Type [Left INT / Saline Lock Antecubital] Active Medications - Current Medications Current Medications: Generic Name Dose Route Start Last Admin Trade Name Freq PRN Reason Stop Dose Admin Acetaminophen 650 mg 01/27/20 16:02 01/28/20 22:06 Tylenol PO 650 mg Q4H PRN Administration Pain MILD(1-3)/Fever >100.5/MIRELES Hydralazine HCl 10 mg 01/27/20 16:06 01/29/20 09:31 Apresoline IV 10 mg Q6HR PRN Administration Hypertension Hydromorphone HCl 0.25 mg 01/27/20 16:06 01/29/20 09:26 Dilaudid IV 0.25 mg Q3H PRN Administration Pain , Severe (7-10) Piperacillin Sod/Tazobactam Sod 4.5 gm in 100 mls @ 200 mls/hr 01/28/20 18:00 01/29/20 02:13 Zosyn/Ns 4.5gm/100ml IV 200 mls/hr Q8H DENA Administration Protocol Ondansetron HCl 4 mg 01/27/20 16:02 Zofran IV Q8H PRN Nausea And Vomiting Sodium Chloride 10 ml 01/27/20 22:00 01/28/20 22:03 Sodium Chloride Flush Syringe 10 Ml IV 10 ml BID DENA Administration Sodium Chloride 10 ml 01/27/20 16:02 Sodium Chloride Flush Syringe 10 Ml IV PRN PRN LINE FLUSH
[2020-01-29] MEDS: ACETAMINOPHEN 325 MG TAB PO PRN ×2 (13:47→21:54)
--- NOTE | 2020-01-29 13:49 | Consultation ---
History of Present Illness Consult date: 01/29/20 Reason for consult: abdominal pain Requesting physician: MICHELLE MULLER Chief complaint: abdominal pain - History of present illness History of present illness: 54yo F recently admitted with new onset abdominal pain. Evaluation by medicine and GI revealed the patient to have gallstone pancreatitis. General surgery was consulted for cholecystectomy consideration. Patient reports that pain is about the same. Associated with nausea and bloating. She has never had anything like this before. Past History Past Medical History: No medical history Past Surgical History: hysterectomy Social history: , lives with family. denies: smoking, alcohol abuse, prescription drug abuse Family history: hypertension Medications and Allergies Allergies Allergy/AdvReac Type Severity Reaction Status Date / Time No Known Allergies Allergy Unverified 03/30/14 11:46 Home Medications Medication Instructions Recorded Confirmed Last Taken Type Triamterene-Hctz 37.5-25 mg Cp 1 tab PO DAILY 01/27/20 01/27/20 1 Day Ago History ~01/26/20 Active Meds: Active Medications Acetaminophen (Tylenol) 650 mg PO Q4H PRN PRN Reason: Pain MILD(1-3)/Fever >100.5/MIRELES Last Admin: 01/29/20 13:47 Dose: 650 mg Documented by: Hydralazine HCl (Apresoline) 10 mg IV Q6HR PRN PRN Reason: Hypertension Last Admin: 01/29/20 09:31 Dose: 10 mg Documented by: Hydromorphone HCl (Dilaudid) 0.25 mg IV Q3H PRN PRN Reason: Pain , Severe (7-10) Last Admin: 01/29/20 13:10 Dose: 0.25 mg Documented by: Piperacillin Sod/Tazobactam Sod (Zosyn/Ns 4.5gm/100ml) 4.5 gm in 100 mls @ 200 mls/hr IV Q8H DENA; Protocol Last Admin: 01/29/20 13:11 Dose: 200 mls/hr Documented by: Ondansetron HCl (Zofran) 4 mg IV Q8H PRN PRN Reason: Nausea And Vomiting Sodium Chloride (Sodium Chloride Flush Syringe 10 Ml) 10 ml IV BID DENA Last Admin: 01/29/20 13:12 Dose: 10 ml Documented by: Sodium Chloride (Sodium Chloride Flush Syringe 10 Ml) 10 ml IV PRN PRN PRN Reason: LINE FLUSH Review of Systems - Constitutional no fever, no chills, no chronic pain - Cardiovascular no chest pain, no shortness of breath - Respiratory no cough - Gastrointestinal abdominal pain, nausea, dyspepsia/bloating - Genitourinary Genitourinary: no dysuria - Muskuloskeletal other (midback pain) - Integumentary no rash, no pruritis, no sores, no wounds, no jaundice Exam Vital Signs Temp Pulse Resp BP Pulse Ox 98.8 F 85 16 198/99 96 01/27/20 11:29 01/27/20 11:29 01/27/20 11:29 01/27/20 11:29 01/27/20 11:29 - General physical appearance Positive: well developed, well nourished, no distress, obese, other (appears mildly uncomfortable) - Eyes Positive: normal occular movement. Negative: icteric - Respiratory Positive: normal expansion, normal respiratory effort, clear to auscultation - Cardiovascular Rhythm: regular (with occasional skipped beats) - Abdomen Abdomen: Present: soft, tender (throughout - mild; mild to moderate in epi gastric area), bowel sounds hypoactive. Absent: distended, guarding, rigid, wound - Integumentary no rash, no growths, no abnormal pigmentation - Neurologic Neurologic: alert and oriented to time, place and person, motor strength and sensation are grossly intact - Psychiatric Psychiatric: appropriate mood/affect, intact judgment & insight, cooperative Results - Labs 01/29/20 05:04 01/29/20 05:04 Abnormal lab results 01/28/20 01/29/20 01/29/20 Range/Units 15:08 05:04 05:04 MCH 27 L (28-32) pg Lymph % (Auto) 11.0 L (13.4-35.0) % Seg Neutrophils % 82.7 H (40.0-70.0) % Seg Neutrophils # 9.1 H (1.8-7.7) K/mm3 Potassium 3.2 L (3.6-5.0) mmol/L Chloride 84.7 L (98-107) mmol/L Creatinine 0.6 L (0.7-1.2) mg/dL Glucose 111 H (65-100) mg/dL Total Bilirubin 5.10 H 1.30 H (0.1-1.2) mg/dL Direct Bilirubin 4.1 H (0-0.2) mg/dL AST 178 H 94 H (5-40) units/L ALT 311 H 226 H (7-56) units/L Alkaline Phosphatase 271 H 239 H (35-129) units/L Albumin 3.7 L 3.6 L (3.9-5) g/dL Lipase 541 H (13-60) units/L Diabetes panel 01/28/20 01/29/20 Range/Units 15:08 05:04 Sodium 145 (137-145) mmol/L Potassium 3.2 L (3.6-5.0) mmol/L Chloride 84.7 L (98-107) mmol/L Carbon Dioxide 24 (22-30) mmol/L BUN 12 (7-17) mg/dL Creatinine 0.6 L (0.7-1.2) mg/dL Glucose 111 H (65-100) mg/dL Calcium 8.8 (8.4-10.2) mg/dL AST 178 H 94 H (5-40) units/L ALT 311 H 226 H (7-56) units/L Alkaline Phosphatase 271 H 239 H (35-129) units/L Total Protein 7.2 7.4 (6.3-8.2) g/dL Albumin 3.7 L 3.6 L (3.9-5) g/dL Calcium panel 01/28/20 01/29/20 Range/Units 15:08 05:04 Calcium 8.8 (8.4-10.2) mg/dL Albumin 3.7 L 3.6 L (3.9-5) g/dL Pituitary panel 01/29/20 Range/Units 05:04 Sodium 145 (137-145) mmol/L Potassium 3.2 L (3.6-5.0) mmol/L Chloride 84.7 L (98-107) mmol/L Carbon Dioxide 24 (22-30) mmol/L BUN 12 (7-17) mg/dL Creatinine 0.6 L (0.7-1.2) mg/dL Glucose 111 H (65-100) mg/dL Calcium 8.8 (8.4-10.2) mg/dL Adrenal panel 01/28/20 01/29/20 Range/Units 15:08 05:04 Sodium 145 (137-145) mmol/L Potassium 3.2 L (3.6-5.0) mmol/L Chloride 84.7 L (98-107) mmol/L Carbon Dioxide 24 (22-30) mmol/L BUN 12 (7-17) mg/dL Creatinine 0.6 L (0.7-1.2) mg/dL Glucose 111 H (65-100) mg/dL Calcium 8.8 (8.4-10.2) mg/dL Total Bilirubin 5.10 H 1.30 H (0.1-1.2) mg/dL AST 178 H 94 H (5-40) units/L ALT 311 H 226 H (7-56) units/L Alkaline Phosphatase 271 H 239 H (35-129) units/L Total Protein 7.2 7.4 (6.3-8.2) g/dL Albumin 3.7 L 3.6 L (3.9-5) g/dL - Imaging CT scan - abdomen: report reviewed, image reviewed CT scan - pelvis: report reviewed, image reviewed Assessment and Plan - Patient Problems (1) Acute gallstone pancreatitis Current Visit: Yes Status: Acute Plan to address problem: Pt stable. Patient is an appropriate candidate for cholecystectomy once the pancreatitis has resolved. Most recent labs show improvement. Will plan for lap francesca with IOC prior to discharge. Patient requested that we talk about surgery and consent at a later time as she is in pain at the moment. I will follow-up with her tomorrow. We will follow along. Please call with any questions. Time=30min
--- NOTE | 2020-01-29 19:30 | Progress Note ---
Assessment and Plan - Patient Problems (1) Acute gallstone pancreatitis Current Visit: Yes Status: Acute Plan to address problem: CT scan of the abdomen and pelvis reviewed, CBC, CMP, gastroenterology team consulted in ED, IV fluid resuscitation therapy, further investigational studies as per GI team, bowel rest, pain control, supportive care. Patient is pending ERCP in a.m. as per GI team (2) Accelerated hypertension Current Visit: Yes Status: Acute Plan to address problem: IV hydralazine every 6 hours as needed for systolic blood pressure greater than or equal to 155, supportive care (3) Elevated LFTs Current Visit: Yes Status: Acute Plan to address problem: CMP, supportive care, repeat CMP in a.m. (4) Nausea & vomiting Current Visit: Yes Status: Acute Qualifiers: Vomiting type: unspecified Vomiting Intractability: non-intractable Qualified Code(s): R11.2 - Nausea with vomiting, unspecified Plan to address problem: Zofran, as needed, bowel rest, IV fluid resuscitation therapy, supportive care. (5) Morbid (severe) obesity due to excess calories Current Visit: Yes Status: Acute Plan to address problem: Balanced diet, increased physical activity at discharge, (6) SIRS due to infectious process with acute organ dysfunction Current Visit: Yes Status: Acute Plan to address problem: CBC, CMP, IV antibiotic therapy, IVF resuscitation therapy (7) DVT prophylaxis Current Visit: Yes Status: Acute Plan to address problem: SCD to bilateral lower extremities while in bed, patient is ambulatory. History Interval history: 54 YO Female HD #3 with Gallstone Pancreatitis, Elevated LFT's, complicated by nausea and vomiting. Patient states that her pain is worse today. Patient denies fever, chills, chest pain, palpitations, productive cough, recent ill contacts. Patient is still n.p.o. and acknowledges worsening nausea. Patient l iver function tests are improving somewhat however patient bilirubin is still elevated. Surgery team consulted. Patient acknowledges worsening abdominal pain. Hospitalist Physical - Constitutional Vitals: Temp Pulse Resp BP Pulse Ox 99.8 F H 103 H 24 147/71 92 01/29/20 16:27 01/29/20 16:27 01/29/20 16:27 01/29/20 16:27 01/29/20 16:27 General appearance: Present: mild distress, obese - EENT Eyes: Present: PERRL, EOM intact ENT: hearing intact - Neck Neck: Present: supple - Respiratory Respiratory: bilateral: CTA - Cardiovascular Rhythm: regular Heart Sounds: Present: S1 & S2 - Extremities Extremities: no ischemia Extremity abnormal: edema Peripheral Pulses: within normal limits - Abdominal General gastrointestinal: soft, tender, normal bowel sounds - Integumentary Integumentary: Present: clear, warm, dry - Psychiatric Psychiatric: appropriate mood/affect, cooperative - Neurologic Neurologic: CNII-XII intact Results - Labs CBC & Chem 7: 01/29/20 05:04 01/29/20 05:04 Labs: Laboratory Last Values WBC 11.0 K/mm3 (4.5-11.0) 01/29/20 05:04 RBC 4.88 M/mm3 (3.65-5.03) 01/29/20 05:04 Hgb 13.0 gm/dl (10.1-14.3) 01/29/20 05:04 Hct 40.1 % (30.3-42.9) 01/29/20 05:04 MCV 82 fl (79-97) 01/29/20 05:04 MCH 27 pg (28-32) L 01/29/20 05:04 MCHC 32 % (30-34) 01/29/20 05:04 RDW 15.0 % (13.2-15.2) 01/29/20 05:04 Plt Count 242 K/mm3 (140-440) 01/29/20 05:04 Lymph % (Auto) 11.0 % (13.4-35.0) L 01/29/20 05:04 [place] % (Auto) 5.7 % (0.0-7.3) 01/29/20 05:04 Eos % (Auto) 0.4 % (0.0-4.3) 01/29/20 05:04 Baso % (Auto) 0.2 % (0.0-1.8) 01/29/20 05:04 Lymph # 1.2 K/mm3 (1.2-5.4) 01/29/20 05:04 [place] # 0.6 K/mm3 (0.0-0.8) 01/29/20 05:04 Eos # 0.0 K/mm3 (0.0-0.4) 01/29/20 05:04 Baso # 0.0 K/mm3 (0.0-0.1) 01/29/20 05:04 Seg Neutrophils % 82.7 % (40.0-70.0) H 01/29/20 05:04 Seg Neutrophils # 9.1 K/mm3 (1.8-7.7) H 01/29/20 05:04 Sodium 145 mmol/L (137-145) 01/29/20 05:04 Potassium 3.2 mmol/L (3.6-5.0) L 01/29/20 05:04 Chloride 84.7 mmol/L (98-107) L 01/29/20 05:04 Carbon Dioxide 24 mmol/L (22-30) 01/29/20 05:04 Anion Gap 19 mmol/L 01/29/20 05:04 BUN 12 mg/dL (7-17) 01/29/20 05:04 Creatinine 0.6 mg/dL (0.7-1.2) L 01/29/20 05:04 Estimated GFR > 60 ml/min 01/29/20 05:04 BUN/Creatinine Ratio 20 % 01/29/20 05:04 Glucose 111 mg/dL (65-100) H 01/29/20 05:04 Lactic Acid 1.40 mmol/L (0.7-2.0) 01/27/20 12:36 Calcium 8.8 mg/dL (8.4-10.2) 01/29/20 05:04 Total Bilirubin 1.30 mg/dL (0.1-1.2) H 01/29/20 05:04 Direct Bilirubin 4.1 mg/dL (0-0.2) H 01/28/20 15:08 Indirect Bilirubin 1.0 mg/dL 01/28/20 15:08 AST 94 units/L (5-40) H 01/29/20 05:04 ALT 226 units/L (7-56) H 01/29/20 05:04 Alkaline Phosphatase 239 units/L (35-129) H 01/29/20 05:04 Total Protein 7.4 g/dL (6.3-8.2) 01/29/20 05:04 Albumin 3.6 g/dL (3.9-5) L 01/29/20 05:04 Albumin/Globulin Ratio 0.9 % 01/29/20 05:04 Lipase 541 units/L (13-60) H 01/29/20 05:04 Urine Color Yellow (Yellow) 01/27/20 16:59 Urine Turbidity Clear (Clear) 01/27/20 16:59 Urine pH 5.0 (5.0-7.0) 01/27/20 16:59 Ur Specific [place] 1.020 (1.003-1.030) 01/27/20 16:59 Urine Protein <15 mg/dl mg/dL (Negative) 01/27/20 16:59 Urine Glucose (UA) Neg mg/dL (Negative) 01/27/20 16:59 Urine Ketones Neg mg/dL (Negative) 01/27/20 16:59 Urine Blood Neg (Negative) 01/27/20 16:59 Urine Nitrite Neg (Negative) 01/27/20 16:59 Urine Bilirubin Neg (Negative) 01/27/20 16:59 Urine Urobilinogen < 2.0 mg/dL (<2.0) 01/27/20 16:59 Ur Leukocyte Esterase Neg (Negative) 01/27/20 16:59 Urine WBC (Auto) 2.0 /HPF (0.0-6.0) 01/27/20 16:59 Urine RBC (Auto) 2.0 /HPF (0.0-6.0) 01/27/20 16:59 U Epithel Cells (Auto) 2.0 /HPF (0-13.0) 01/27/20 16:59 Urine Mucus Few /HPF 01/27/20 16:59 Emerson/IV: Voiding Method Toilet IV Catheter Type [Left INT / Saline Lock Antecubital] Active Medications - Current Medications Current Medications: Generic Name Dose Route Start Last Admin Trade Name Freq PRN Reason Stop Dose Admin Acetaminophen 650 mg 01/27/20 16:02 01/29/20 13:47 Tylenol PO 650 mg Q4H PRN Administration Pain MILD(1-3)/Fever >100.5/MIRELES Hydralazine HCl 10 mg 01/27/20 16:06 01/29/20 09:31 Apresoline IV 10 mg Q6HR PRN Administration Hypertension Hydromorphone HCl 0.25 mg 01/27/20 16:06 01/29/20 16:51 Dilaudid IV 0.25 mg Q3H PRN Administration Pain , Severe (7-10) Piperacillin Sod/Tazobactam Sod 4.5 gm in 100 mls @ 200 mls/hr 01/28/20 18:00 01/29/20 19:05 Zosyn/Ns 4.5gm/100ml IV 200 mls/hr Q8H DENA Administration Protocol Ondansetron HCl 4 mg 01/27/20 16:02 Zofran IV Q8H PRN Nausea And Vomiting Sodium Chloride 10 ml 01/27/20 22:00 01/29/20 13:12 Sodium Chloride Flush Syringe 10 Ml IV 10 ml BID DENA Administration Sodium Chloride 10 ml 01/27/20 16:02 Sodium Chloride Flush Syringe 10 Ml IV PRN PRN LINE FLUSH
[2020-01-30] MEDS: PIPERACIL/TAZOBACTA 4.5/NS 100 4.5 GM/100 ML VIAL IV SCH ×2 (01:41→09:39)
[2020-01-30] MEDS ORDERED: HYDROmorphone 1 MG/1 ML INJ IV ONE (02:00)
[2020-01-30] MEDS: HYDROmorphone 1 MG/1 ML INJ IV PRN ×5 (06:15→20:33)
[2020-01-30 09:36] LABS: Basophils % (Auto) 0.2 % (0.0-1.8); Eosinophils # (Auto) 0.1 K/mm3 (0.0-0.4); Eosinophils % (Auto) 0.7 % (0.0-4.3); Hematocrit 36.2 % (30.3-42.9); Lymphocytes % (Auto) 9.7 % (13.4-35.0); Mean Corpuscular HGB Conc 33 % (30-34); Mean Corpuscular Volume 81 fl (79-97); Monocytes # (Auto) 0.7 K/mm3 (0.0-0.8); Monocytes % (Auto) 6.6 % (0.0-7.3); Platelet Count 216 K/mm3 (140-440); Red Blood Count 4.45 M/mm3 (3.65-5.03); Red Cell Distribution Width 14.4 % (13.2-15.2)
--- NOTE | 2020-01-30 09:59 | Progress Note ---
Assessment and Plan - Patient Problems (1) Acute gallstone pancreatitis Current Visit: Yes Status: Acute Plan to address problem: Pt stable. Discussed surgery today. Procedure, risk, benefits were discussed. All questions were answered. Consent was obtained. Patient understands that surgery will occur once the pancreatitis resolves. Please call with any questions. Time=10min Subjective Date of service: 01/30/20 Patient Reports: Positive: no new complaints, pain is less (slightly) Objective Vital Signs - 12hr 01/29/20 01/29/20 01/29/20 22:00 22:54 23:21 Temperature Pulse Rate Respiratory 18 18 17 Rate Respiratory 18 Rate [Abdomen] Blood Pressure O2 Sat by Pulse Oximetry 01/29/20 01/30/20 01/30/20 23:51 02:28 02:58 Temperature Pulse Rate Respiratory 18 18 17 Rate Respiratory Rate [Abdomen] Blood Pressure O2 Sat by Pulse Oximetry 01/30/20 01/30/20 01/30/20 04:59 06:15 06:45 Temperature 98.8 F Pulse Rate 96 H Respiratory 16 19 17 Rate Respiratory Rate [Abdomen] Blood Pressure 156/87 O2 Sat by Pulse 94 Oximetry 01/30/20 08:28 Temperature Pulse Rate Respiratory Rate Respiratory Rate [Abdomen] Blood Pressure O2 Sat by Pulse 95 Oximetry - General physical appearance no distress, no pain, obese, other (looks a little better) - Eyes normal occular movement - Respiratory normal expansion, normal respiratory effort - Abdomen soft, tender (in epigastric area) - Psychiatric oriented to time, oriented to person, oriented to place, speech is normal, memory intact - Labs 01/30/20 08:11 01/29/20 05:04
[2020-01-30 10:00] LABS: Alanine Aminotransferase 131 units/L (7-56); Albumin 3.5 g/dL (3.9-5); BUN/Creatinine Ratio 18; Blood Urea Nitrogen 9 mg/dL (7-17); Calcium 8.3 mg/dL (8.4-10.2); Hemolysis Index 11
--- NOTE | 2020-01-30 10:21 | Gastroenterology Progress Note ---
Assessment and Plan 1. Biliary pancreatitis - clinically improving; tolerating clears. episode of abd pain this morning so will keep on clears for now. mrcp with small stone, which may have passed given improvement in labs. recommend IOC at time of CCY per surgery. 2. Sepsis - improving, fever likely from acute pancreatitis; liver enzymes improved significantly. will d/c abx. Subjective Date of service: 01/30/20 Principal diagnosis: biliary pancreatitis Interval history: pt with episode of abd pain this morning; tolerated clears yesterday. no n/v or fevers. pain overall improved since admission Objective - Constitutional Vitals: Temp Pulse Resp BP Pulse Ox 98.8 F 96 H 17 156/87 95 01/30/20 04:59 01/30/20 04:59 01/30/20 06:45 01/30/20 04:59 01/30/20 08:28 General appearance: no acute distress - Respiratory Respiratory effort: normal Respiratory: bilateral: CTA - Cardiovascular Rhythm: regular Heart Sounds: Present: S1 & S2 - Gastrointestinal General gastrointestinal: Present: soft, non-tender, non-distended - Integumentary Integumentary: Present: clear, warm - Neurologic Neurological: alert and oriented x3 - Psychiatric Psychiatric: appropriate mood/affect - Labs CBC & Chem 7: 01/30/20 08:11 01/30/20 08:11 Labs: Laboratory Results - last 24 hr 01/30/20 01/30/20 08:11 08:11 WBC 9.9 RBC 4.45 Hgb 12.0 Hct 36.2 MCV 81 MCH 27 L MCHC 33 RDW 14.4 Plt Count 216 Lymph % (Auto) 9.7 L [place] % (Auto) 6.6 Eos % (Auto) 0.7 Baso % (Auto) 0.2 Lymph # 1.0 L [place] # 0.7 Eos # 0.1 Baso # 0.0 Seg Neutrophils % 82.8 H Seg Neutrophils # 8.2 H Sodium 143 Potassium 3.2 L Chloride 102.7 Carbon Dioxide 26 Anion Gap 18 BUN 9 Creatinine 0.5 L Estimated GFR > 60 BUN/Creatinine Ratio 18 Glucose 103 H Calcium 8.3 L Total Bilirubin 1.00 AST 29 ALT 131 H Alkaline Phosphatase 178 H Total Protein 6.2 L Albumin 3.5 L Albumin/Globulin Ratio 1.3
--- NOTE | 2020-01-30 12:13 | Progress Note ---
Assessment and Plan - Patient Problems (1) Acute gallstone pancreatitis Current Visit: Yes Status: Acute Plan to address problem: CT scan of the abdomen and pelvis reviewed, CBC, CMP, gastroenterology team consulted, IV fluid resuscitation therapy, patient is pending surgical intervention today as per surgical team. (2) Accelerated hypertension Current Visit: Yes Status: Acute Plan to address problem: IV hydralazine every 6 hours as needed for systolic blood pressure greater than or equal to 155, supportive care (3) Elevated LFTs Current Visit: Yes Status: Acute Plan to address problem: CMP, supportive care, repeat CMP in a.m. (4) Nausea & vomiting Current Visit: Yes Status: Acute Qualifiers: Vomiting type: unspecified Vomiting Intractability: non-intractable Qualified Code(s): R11.2 - Nausea with vomiting, unspecified Plan to address problem: Zofran, as needed, bowel rest, IV fluid resuscitation therapy, supportive care. (5) Morbid (severe) obesity due to excess calories Current Visit: Yes Status: Acute Plan to address problem: Balanced diet, increased physical activity at discharge, (6) SIRS due to infectious process with acute organ dysfunction Current Visit: Yes Status: Acute Plan to address problem: CBC, CMP, IV antibiotic therapy, IVF resuscitation therapy (7) DVT prophylaxis Current Visit: Yes Status: Acute Plan to address problem: SCD to bilateral lower extremities while in bed, patient is ambulatory. History Interval history: 54 YO Female HD #4 with Gallstone Pancreatitis, Elevated LFT's, complicated by nausea and vomiting. Patient states that her pain is worse today. Patient denies fever, chills, chest pain, palpitations, productive cough, recent ill contacts. Patient tolerating clear liquids today. Patient states that her nausea and vomiting is improved. Patient liver function tests are improving and patient bilirubin has normalized. Surgery team consulted. Patient is pending surgical intervention today Hospitalist Physical - Constitutional Vitals: Temp Pulse Resp BP Pulse Ox 98.8 F 96 H 17 156/87 95 01/30/20 04:59 01/30/20 04:59 01/30/20 06:45 01/30/20 04:59 01/30/20 08:28 General appearance: Present: mild distress, obese - EENT Eyes: Present: PERRL, EOM intact ENT: hearing intact - Neck Neck: Present: supple - Respiratory Respiratory effort: normal Respiratory: bilateral: CTA - Cardiovascular Rhythm: regular Heart Sounds: Present: S1 & S2 Peripheral Pulses: within normal limits - Abdominal General gastrointestinal: soft, non-distended, normal bowel sounds - Integumentary Integumentary: Present: clear, warm, dry - Psychiatric Psychiatric: appropriate mood/affect, cooperative - Neurologic Neurologic: CNII-XII intact Results - Labs CBC & Chem 7: 01/30/20 08:11 01/30/20 08:11 Labs: Laboratory Last Values WBC 9.9 K/mm3 (4.5-11.0) 01/30/20 08:11 RBC 4.45 M/mm3 (3.65-5.03) 01/30/20 08:11 Hgb 12.0 gm/dl (10.1-14.3) 01/30/20 08:11 Hct 36.2 % (30.3-42.9) 01/30/20 08:11 MCV 81 fl (79-97) 01/30/20 08:11 MCH 27 pg (28-32) L 01/30/20 08:11 MCHC 33 % (30-34) 01/30/20 08:11 RDW 14.4 % (13.2-15.2) 01/30/20 08:11 Plt Count 216 K/mm3 (140-440) 01/30/20 08:11 Lymph % (Auto) 9.7 % (13.4-35.0) L 01/30/20 08:11 [place] % (Auto) 6.6 % (0.0-7.3) 01/30/20 08:11 Eos % (Auto) 0.7 % (0.0-4.3) 01/30/20 08:11 Baso % (Auto) 0.2 % (0.0-1.8) 01/30/20 08:11 Lymph # 1.0 K/mm3 (1.2-5.4) L 01/30/20 08:11 [place]mer[place]da # 0.7 K/mm3 (0.0-0.8) 01/30/20 08:11 Eos # 0.1 K/mm3 (0.0-0.4) 01/30/20 08:11 Baso # 0.0 K/mm3 (0.0-0.1) 01/30/20 08:11 Seg Neutrophils % 82.8 % (40.0-70.0) H 01/30/20 08:11 Seg Neutrophils # 8.2 K/mm3 (1.8-7.7) H 01/30/20 08:11 Sodium 143 mmol/L (137-145) 01/30/20 08:11 Potassium 3.2 mmol/L (3.6-5.0) L 01/30/20 08:11 Chloride 102.7 mmol/L (98-107) 01/30/20 08:11 Carbon Dioxide 26 mmol/L (22-30) 01/30/20 08:11 Anion Gap 18 mmol/L 01/30/20 08:11 BUN 9 mg/dL (7-17) 01/30/20 08:11 Creatinine 0.5 mg/dL (0.7-1.2) L 01/30/20 08:11 Estimated GFR > 60 ml/min 01/30/20 08:11 BUN/Creatinine Ratio 18 % 01/30/20 08:11 Glucose 103 mg/dL (65-100) H 01/30/20 08:11 Lactic Acid 1.40 mmol/L (0.7-2.0) 01/27/20 12:36 Calcium 8.3 mg/dL (8.4-10.2) L 01/30/20 08:11 Total Bilirubin 1.00 mg/dL (0.1-1.2) 01/30/20 08:11 Direct Bilirubin 4.1 mg/dL (0-0.2) H 01/28/20 15:08 Indirect Bilirubin 1.0 mg/dL 01/28/20 15:08 AST 29 units/L (5-40) 01/30/20 08:11 ALT 131 units/L (7-56) H 01/30/20 08:11 Alkaline Phosphatase 178 units/L (35-129) H 01/30/20 08:11 Total Protein 6.2 g/dL (6.3-8.2) L 01/30/20 08:11 Albumin 3.5 g/dL (3.9-5) L 01/30/20 08:11 Albumin/Globulin Ratio 1.3 % 01/30/20 08:11 Lipase 541 units/L (13-60) H 01/29/20 05:04 Urine Color Yellow (Yellow) 01/27/20 16:59 Urine Turbidity Clear (Clear) 01/27/20 16:59 Urine pH 5.0 (5.0-7.0) 01/27/20 16:59 Ur Specific [place] 1.020 (1.003-1.030) 01/27/20 16:59 Urine Protein <15 mg/dl mg/dL (Negative) 01/27/20 16:59 Urine Glucose (UA) Neg mg/dL (Negative) 01/27/20 16:59 Urine Ketones Neg mg/dL (Negative) 01/27/20 16:59 Urine Blood Neg (Negative) 01/27/20 16:59 Urine Nitrite Neg (Negative) 01/27/20 16:59 Urine Bilirubin Neg (Negative) 01/27/20 16:59 Urine Urobilinogen < 2.0 mg/dL (<2.0) 01/27/20 16:59 Ur Leukocyte Esterase Neg (Negative) 01/27/20 16:59 Urine WBC (Auto) 2.0 /HPF (0.0-6.0) 01/27/20 16:59 Urine RBC (Auto) 2.0 /HPF (0.0-6.0) 01/27/20 16:59 U Epithel Cells (Auto) 2.0 /HPF (0-13.0) 01/27/20 16:59 Urine Mucus Few /HPF 01/27/20 16:59 Emerson/IV: Voiding Method Toilet IV Catheter Type [Left INT / Saline Lock Antecubital] Active Medications - Current Medications Current Medications: Generic Name Dose Route Start Last Admin Trade Name Freq PRN Reason Stop Dose Admin Acetaminophen 650 mg 01/27/20 16:02 01/29/20 21:54 Tylenol PO 650 mg Q4H PRN Administration Pain MILD(1-3)/Fever >100.5/MIRELES Hydralazine HCl 10 mg 01/27/20 16:06 01/29/20 09:31 Apresoline IV 10 mg Q6HR PRN Administration Hypertension Hydromorphone HCl 0.25 mg 01/27/20 16:06 01/30/20 09:36 Dilaudid IV 0.25 mg Q3H PRN Administration Pain , Severe (7-10) Ondansetron HCl 4 mg 01/27/20 16:02 Zofran IV Q8H PRN Nausea And Vomiting Sodium Chloride 10 ml 01/27/20 22:00 01/30/20 09:38 Sodium Chloride Flush Syringe 10 Ml IV 10 ml BID DENA Administration Sodium Chloride 10 ml 01/27/20 16:02 Sodium Chloride Flush Syringe 10 Ml IV PRN PRN LINE FLUSH
[2020-01-30] MEDS ORDERED: SODIUM CHLORIDE 0.9% 1000 ML 1,000 ML IV ONE (17:01)
[2020-01-30] MEDS: ACETAMINOPHEN 325 MG TAB PO PRN ×2 (17:08→21:28)
[2020-01-31] MEDS: HYDROmorphone 1 MG/1 ML INJ IV PRN ×7 (00:09→22:37)
--- NOTE | 2020-01-31 11:15 | Progress Note ---
Assessment and Plan (1) Acute gallstone pancreatitis Current Visit: Yes Status: Acute Plan to address problem: Pt stable. Abdominal pain improving Plan; 1. adv to full liquid diet 2. repeat lipase in am 3. IVF 4. prn pain control 5. Will plan for CCY with [facility] this week. Thank you, please call with questions. Subjective Date of service: 01/31/20 Narrative: Pt seen and examined. States she feels better today. Abdominal pain is improving. She is tolerating liquids. No n/v, f/c Objective Vital Signs - 12hr 01/31/20 04:50 Temperature 99.4 F Pulse Rate 88 Respiratory 16 Rate Blood Pressure 153/72 O2 Sat by Pulse 93 Oximetry - General physical appearance Narrative Exam: Gen: AAOx3. NAD CV: s1, S2+ resp; even and unlabored Abd: soft, ND, mild discomfort on palpation of epigastrum. No r/r/g Ext: no c/c/e - Labs 01/30/20 08:11 01/30/20 08:11
--- NOTE | 2020-01-31 20:39 | Progress Note ---
Assessment and Plan - Patient Problems (1) Acute gallstone pancreatitis Current Visit: Yes Status: Acute Plan to address problem: gastroenterology team consulted, IV fluid resuscitation therapy, patient is pending surgical intervention today as per surgical team depending on patient's clinical course. Patient is tolerating clear liquid diet. Advance as tolerated as per surgical team.. (2) Accelerated hypertension Current Visit: Yes Status: Acute Plan to address problem: IV hydralazine every 6 hours as needed for systolic blood pressure greater than or equal to 155, supportive care (3) Elevated LFTs Current Visit: Yes Status: Acute Plan to address problem: CMP, supportive care, repeat CMP in a.m. (4) Nausea & vomiting Current Visit: Yes Status: Acute Qualifiers: Vomiting type: unspecified Vomiting Intractability: non-intractable Qualified Code(s): R11.2 - Nausea with vomiting, unspecified Plan to address problem: Zofran, as needed, bowel rest, IV fluid resuscitation therapy, supportive care. (5) Morbid (severe) obesity due to excess calories Current Visit: Yes Status: Acute Plan to address problem: Balanced diet, increased physical activity at discharge, (6) SIRS due to infectious process with acute organ dysfunction Current Visit: Yes Status: Acute Plan to address problem: CBC, CMP, IV antibiotic therapy, IVF resuscitation therapy (7) DVT prophylaxis Current Visit: Yes Status: Acute Plan to address problem: SCD to bilateral lower extremities while in bed, patient is ambulatory. History Interval history: 54 YO Female HD #5 with Gallstone Pancreatitis, Elevated LFT's, complicated by nausea and vomiting. Patient states that her pain is better today. Patient denies fever, chills, chest pain, palpitations, productive cough, recent ill contacts. Patient tolerating clear liquids today. Patient states that her nausea and vomiting is improved. Patient liver function tests are improving and patient bilirubin has normalized. Surgery team consulted. Patient is pending surgical intervention based on clinical course. Hospitalist Physical - Constitutional Vitals: Temp Pulse Resp BP Pulse Ox 100.1 F H 95 H 18 142/71 97 01/31/20 16:25 01/31/20 16:25 01/31/20 19:30 01/31/20 16:25 01/31/20 20:33 General appearance: Present: mild distress, obese - EENT Eyes: Present: PERRL, EOM intact ENT: hearing intact - Neck Neck: Present: supple - Respiratory Respiratory effort: normal Respiratory: bilateral: CTA - Extremities Extremities: no ischemia Peripheral Pulses: within normal limits - Abdominal General gastrointestinal: soft, non-tender, non-distended - Integumentary Integumentary: Present: clear, warm, dry - Psychiatric Psychiatric: appropriate mood/affect, cooperative - Neurologic Neurologic: CNII-XII intact Results - Labs CBC & Chem 7: 01/30/20 08:11 01/30/20 08:11 Labs: Laboratory Last Values WBC 9.9 K/mm3 (4.5-11.0) 01/30/20 08:11 RBC 4.45 M/mm3 (3.65-5.03) 01/30/20 08:11 Hgb 12.0 gm/dl (10.1-14.3) 01/30/20 08:11 Hct 36.2 % (30.3-42.9) 01/30/20 08:11 MCV 81 fl (79-97) 01/30/20 08:11 MCH 27 pg (28-32) L 01/30/20 08:11 MCHC 33 % (30-34) 01/30/20 08:11 RDW 14.4 % (13.2-15.2) 01/30/20 08:11 Plt Count 216 K/mm3 (140-440) 01/30/20 08:11 Lymph % (Auto) 9.7 % (13.4-35.0) L 01/30/20 08:11 [place] % (Auto) 6.6 % (0.0-7.3) 01/30/20 08:11 Eos % (Auto) 0.7 % (0.0-4.3) 01/30/20 08:11 Baso % (Auto) 0.2 % (0.0-1.8) 01/30/20 08:11 Lymph # 1.0 K/mm3 (1.2-5.4) L 01/30/20 08:11 [place] # 0.7 K/mm3 (0.0-0.8) 01/30/20 08:11 Eos # 0.1 K/mm3 (0.0-0.4) 01/30/20 08:11 Baso # 0.0 K/mm3 (0.0-0.1) 06/12/20 08:11 Seg Neutrophils % 82.8 % (40.0-70.0) H 01/30/20 08:11 Seg Neutrophils # 8.2 K/mm3 (1.8-7.7) H 01/30/20 08:11 Sodium 143 mmol/L (137-145) 01/30/20 08:11 Potassium 3.2 mmol/L (3.6-5.0) L 01/30/20 08:11 Chloride 102.7 mmol/L (98-107) 01/30/20 08:11 Carbon Dioxide 26 mmol/L (22-30) 01/30/20 08:11 Anion Gap 18 mmol/L 01/30/20 08:11 BUN 9 mg/dL (7-17) 01/30/20 08:11 Creatinine 0.5 mg/dL (0.7-1.2) L 01/30/20 08:11 Estimated GFR > 60 ml/min 01/30/20 08:11 BUN/Creatinine Ratio 18 % 01/30/20 08:11 Glucose 103 mg/dL (65-100) H 01/30/20 08:11 Lactic Acid 1.40 mmol/L (0.7-2.0) 01/27/20 12:36 Calcium 8.3 mg/dL (8.4-10.2) L 01/30/20 08:11 Total Bilirubin 1.00 mg/dL (0.1-1.2) 01/30/20 08:11 Direct Bilirubin 4.1 mg/dL (0-0.2) H 01/28/20 15:08 Indirect Bilirubin 1.0 mg/dL 01/28/20 15:08 AST 29 units/L (5-40) 01/30/20 08:11 ALT 131 units/L (7-56) H 01/30/20 08:11 Alkaline Phosphatase 178 units/L (35-129) H 01/30/20 08:11 Total Protein 6.2 g/dL (6.3-8.2) L 01/30/20 08:11 Albumin 3.5 g/dL (3.9-5) L 01/30/20 08:11 Albumin/Globulin Ratio 1.3 % 01/30/20 08:11 Lipase 541 units/L (13-60) H 01/29/20 05:04 Urine Color Yellow (Yellow) 01/27/20 16:59 Urine Turbidity Clear (Clear) 01/27/20 16:59 Urine pH 5.0 (5.0-7.0) 01/27/20 16:59 Ur Specific [place] 1.020 (1.003-1.030) 01/27/20 16:59 Urine Protein <15 mg/dl mg/dL (Negative) 01/27/20 16:59 Urine Glucose (UA) Neg mg/dL (Negative) 01/27/20 16:59 Urine Ketones Neg mg/dL (Negative) 01/27/20 16:59 Urine Blood Neg (Negative) 01/27/20 16:59 Urine Nitrite Neg (Negative) 01/27/20 16:59 Urine Bilirubin Neg (Negative) 01/27/20 16:59 Urine Urobilinogen < 2.0 mg/dL (<2.0) 01/27/20 16:59 Ur Leukocyte Esterase Neg (Negative) 01/27/20 16:59 Urine WBC (Auto) 2.0 /HPF (0.0-6.0) 01/27/20 16:59 Urine RBC (Auto) 2.0 /HPF (0.0-6.0) 01/27/20 16:59 U Epithel Cells (Auto) 2.0 /HPF (0-13.0) 01/27/20 16:59 Urine Mucus Few /HPF 01/27/20 16:59 Emerson/IV: Voiding Method Toilet IV Catheter Type [Right Hand] INT / Saline Lock IV Catheter Type [Right INT / Saline Lock Forearm] IV Catheter Type [Left INT / Saline Lock Antecubital] Active Medications - Current Medications Current Medications: Generic Name Dose Route Start Last Admin Trade Name Freq PRN Reason Stop Dose Admin Acetaminophen 650 mg 01/27/20 16:02 01/30/20 21:28 Tylenol PO 650 mg Q4H PRN Administration Pain MILD(1-3)/Fever >100.5/MIRELES Hydralazine HCl 10 mg 01/27/20 16:06 01/29/20 09:31 Apresoline IV 10 mg Q6HR PRN Administration Hypertension Hydromorphone HCl 1 mg 01/31/20 01:55 01/31/20 19:30 Dilaudid IV 1 mg Q3H PRN Administration Pain , Severe (7-10) Ondansetron HCl 4 mg 01/27/20 16:02 Zofran IV Q8H PRN Nausea And Vomiting Sodium Chloride 10 ml 01/27/20 22:00 01/31/20 10:28 Sodium Chloride Flush Syringe 10 Ml IV 10 ml BID DENA Administration Sodium Chloride 10 ml 01/27/20 16:02 Sodium Chloride Flush Syringe 10 Ml IV PRN PRN LINE FLUSH
[2020-02-01] MEDS: HYDROmorphone 1 MG/1 ML INJ IV PRN ×5 (04:32→21:00)
--- NOTE | 2020-02-01 09:40 | Progress Note ---
Assessment and Plan 1. Gallstone pancreatitis - doing well. Probable small stone noted on MRCP. - CCY and IOC tomorrow - if positive, ERCP Subjective Date of service: 02/01/20 Principal diagnosis: biliary pancreatitis Interval history: Pt feels well. No significant discomfort. Objective - Constitutional Vitals: Vital Signs - 12hr 01/31/20 02/01/20 02/01/20 22:37 04:32 05:32 Temperature 98.0 F 99.9 F H Pulse Rate 91 H 94 H Respiratory 20 18 18 Rate Blood Pressure 160/83 146/71 O2 Sat by Pulse 93 92 Oximetry 02/01/20 09:11 Temperature Pulse Rate Respiratory Rate Blood Pressure O2 Sat by Pulse 92 Oximetry General appearance: Present: no acute distress - EENT Eyes: PERRL, EOM intact ENT: hearing intact - Respiratory Respiratory effort: normal - Gastrointestinal General gastrointestinal: Present: soft, tender (Mild, LUQ) - Labs CBC & Chem 7: 01/30/20 08:11 01/30/20 08:11 Labs: Abnormal lab results 02/01/20 Range/Units 04:38 Lipase 122 H (13-60) units/L Medications & Allergies - Medications Allergies/Adverse Reactions: Allergies No Known Allergies Allergy (Unverified 03/30/14 11:46) Home Medications: Home Medications Medication Instructions Recorded Confirmed Last Taken Type Triamterene-Hctz 37.5-25 mg Cp 1 tab PO DAILY 01/27/20 01/27/20 1 Day Ago History ~01/26/20 Active Medications: Generic Name Dose Route Start Last Admin Trade Name Freq PRN Reason Stop Dose Admin Acetaminophen 650 mg 01/27/20 16:02 01/30/20 21:28 Tylenol PO 650 mg Q4H PRN Administration Pain MILD(1-3)/Fever >100.5/MIRELES Hydralazine HCl 10 mg 01/27/20 16:06 01/29/20 09:31 Apresoline IV 10 mg Q6HR PRN Administration Hypertension Hydromorphone HCl 1 mg 01/31/20 01:55 02/01/20 09:24 Dilaudid IV 1 mg Q3H PRN Administration Pain , Severe (7-10) Ondansetron HCl 4 mg 01/27/20 16:02 Zofran IV Q8H PRN Nausea And Vomiting Sodium Chloride 10 ml 01/27/20 22:00 02/01/20 09:22 Sodium Chloride Flush Syringe 10 Ml IV 10 ml BID DENA Administration Sodium Chloride 10 ml 01/27/20 16:02 Sodium Chloride Flush Syringe 10 Ml IV PRN PRN LINE FLUSH
[2020-02-01 10:43] LABS: Basophils % (Auto) 0.3 % (0.0-1.8); Eosinophils # (Auto) 0.1 K/mm3 (0.0-0.4); Eosinophils % (Auto) 1.3 % (0.0-4.3); Hematocrit 35.7 % (30.3-42.9); Lymphocytes # (Auto) 0.9 K/mm3 (1.2-5.4); Lymphocytes % (Auto) 11.3 % (13.4-35.0); Mean Corpuscular HGB Conc 34 % (30-34); Mean Corpuscular Volume 82 fl (79-97); Monocytes # (Auto) 0.7 K/mm3 (0.0-0.8); Monocytes % (Auto) 7.9 % (0.0-7.3); Platelet Count 275 K/mm3 (140-440); Red Blood Count 4.34 M/mm3 (3.65-5.03); Red Cell Distribution Width 14.6 % (13.2-15.2)
[2020-02-01 11:09] LABS: Alanine Aminotransferase 56 units/L (7-56); Albumin 3.2 g/dL (3.9-5); BUN/Creatinine Ratio 16; Blood Urea Nitrogen 8 mg/dL (7-17); Calcium 8.6 mg/dL (8.4-10.2)
[2020-02-01] MEDS ORDERED: POTASSIUM CHLORIDE ER 20 MEQ TAB PO ONE (15:11)
--- NOTE | 2020-02-01 15:32 | Progress Note ---
Assessment and Plan (1) Acute gallstone pancreatitis Current Visit: Yes Status: Acute Plan to address problem: Pt stable. Abdominal pain improving Plan: 1. full liquid diet, NPO p MN 2. repeat labs in am 3. IVF 4. prn pain control 5. empiric abx 6. replace K 7. Pt added to OR schedule for tomorrow 02/02/20 for CCY with IOC Plan discussed with patient. Thank you, please call with questions. Subjective Date of service: 02/01/20 Narrative: Pt seen and examined. Tm 100.3. Feels well. Minimal abdominal discomfort. No n/v. Has been tolerating diet but poor appetite Objective Vital Signs - 12hr 02/01/20 02/01/20 02/01/20 04:32 05:32 09:11 Temperature 99.9 F H Pulse Rate 94 H Respiratory 18 18 Rate Blood Pressure 146/71 O2 Sat by Pulse 92 92 Oximetry 02/01/20 11:15 Temperature 100.3 F H Pulse Rate 94 H Respiratory 20 Rate Blood Pressure 143/73 O2 Sat by Pulse 92 Oximetry - Labs 02/01/20 10:28 02/01/20 10:28 Diabetes panel 02/01/20 Range/Units 10:28 Sodium 143 (137-145) mmol/L Potassium 3.0 L (3.6-5.0) mmol/L Chloride 101.2 (98-107) mmol/L Carbon Dioxide 31 H (22-30) mmol/L BUN 8 (7-17) mg/dL Creatinine 0.5 L (0.7-1.2) mg/dL Glucose 137 H (65-100) mg/dL Calcium 8.6 (8.4-10.2) mg/dL AST 17 (5-40) units/L ALT 56 (7-56) units/L Alkaline Phosphatase 117 (35-129) units/L Total Protein 6.1 L (6.3-8.2) g/dL Albumin 3.2 L (3.9-5) g/dL Calcium panel 02/01/20 Range/Units 10:28 Calcium 8.6 (8.4-10.2) mg/dL Albumin 3.2 L (3.9-5) g/dL Pituitary panel 02/01/20 Range/Units 10:28 Sodium 143 (137-145) mmol/L Potassium 3.0 L (3.6-5.0) mmol/L Chloride 101.2 (98-107) mmol/L Carbon Dioxide 31 H (22-30) mmol/L BUN 8 (7-17) mg/dL Creatinine 0.5 L (0.7-1.2) mg/dL Glucose 137 H (65-100) mg/dL Calcium 8.6 (8.4-10.2) mg/dL Adrenal panel 02/01/20 Range/Units 10:28 Sodium 143 (137-145) mmol/L Potassium 3.0 L (3.6-5.0) mmol/L Chloride 101.2 (98-107) mmol/L Carbon Dioxide 31 H (22-30) mmol/L BUN 8 (7-17) mg/dL Creatinine 0.5 L (0.7-1.2) mg/dL Glucose 137 H (65-100) mg/dL Calcium 8.6 (8.4-10.2) mg/dL Total Bilirubin 0.70 (0.1-1.2) mg/dL AST 17 (5-40) units/L ALT 56 (7-56) units/L Alkaline Phosphatase 117 (35-129) units/L Total Protein 6.1 L (6.3-8.2) g/dL Albumin 3.2 L (3.9-5) g/dL
--- NOTE | 2020-02-01 19:24 | Progress Note ---
Assessment and Plan - Patient Problems (1) Acute gallstone pancreatitis Current Visit: Yes Status: Acute Plan to address problem: Surgical team consulted, IV fluid resuscitation therapy, patient is pending surgical intervention in AM as per surgical team, Pancreatitis resolved. Patient is tolerating clear liquid diet. Advance as tolerated as per surgical team. (2) Accelerated hypertension Current Visit: Yes Status: Acute Plan to address problem: IV hydralazine every 6 hours as needed for systolic blood pressure greater than or equal to 155, supportive care (3) Elevated LFTs Current Visit: Yes Status: Acute Plan to address problem: CMP, supportive care, repeat CMP in a.m. (4) Nausea & vomiting Current Visit: Yes Status: Acute Qualifiers: Vomiting type: unspecified Vomiting Intractability: non-intractable Qualified Code(s): R11.2 - Nausea with vomiting, unspecified Plan to address problem: Zofran, as needed, bowel rest, IV fluid resuscitation therapy, supportive care. (5) Morbid (severe) obesity due to excess calories Current Visit: Yes Status: Acute Plan to address problem: Balanced diet, increased physical activity at discharge, (6) SIRS due to infectious process with acute organ dysfunction Current Visit: Yes Status: Acute Plan to address problem: CBC, CMP, IV antibiotic therapy, IVF resuscitation therapy (7) DVT prophylaxis Current Visit: Yes Status: Acute Plan to address problem: SCD to bilateral lower extremities while in bed, patient is ambulatory. History Interval history: 54 YO Female HD #6 with Gallstone Pancreatitis, Elevated LFT's, complicated by nausea and vomiting. Patient states that her pain is better today. Patient denies fever, chills, chest pain, palpitations, productive cough, recent ill contacts. Patient tolerating clear liquids today. Patient states that her nausea and vomiting is improved. Patient liver function tests are improving and patient bilirubin has normalized. Surgery team consulted. Patient is pending surgical intervention in am. Pt pancreatitis has resolved. Hospitalist Physical - Constitutional Vitals: Temp Pulse Resp BP Pulse Ox 100.0 F H 96 H 18 154/80 96 02/01/20 17:07 02/01/20 17:07 02/01/20 17:07 02/01/20 17:07 02/01/20 17:07 General appearance: Present: no acute distress, obese - EENT Eyes: Present: PERRL, EOM intact - Neck Neck: Present: supple - Respiratory Respiratory effort: normal Respiratory: bilateral: CTA - Cardiovascular Rhythm: regular Heart Sounds: Present: S1 & S2 - Extremities Extremities: no ischemia - Abdominal General gastrointestinal: soft, non-tender, non-distended, normal bowel sounds - Integumentary Integumentary: Present: clear, warm, dry - Psychiatric Psychiatric: appropriate mood/affect, cooperative - Neurologic Neurologic: CNII-XII intact Results - Labs CBC & Chem 7: 02/01/20 10:28 02/01/20 10:28 Labs: Laboratory Last Values WBC 8.2 K/mm3 (4.5-11.0) 02/01/20 10: RBC 4.34 M/mm3 (3.65-5.03) 02/01/20 10: Hgb 12.0 gm/dl (10.1-14.3) 02/01/20 10: Hct 35.7 % (30.3-42.9) 02/01/20 10: MCV 82 fl (79-97) 02/01/20 10: MCH 28 pg (28-32) 02/01/20 10: MCHC 34 % (30-34) 02/01/20 10: RDW 14.6 % (13.2-15.2) 02/01/20 10: Plt Count 275 K/mm3 (140-440) 02/01/20 10: Lymph % (Auto) 11.3 % (13.4-35.0) L 02/01/20 10: [place] % (Auto) 7.9 % (0.0-7.3) H 02/01/20 10: Eos % (Auto) 1.3 % (0.0-4.3) 02/01/20 10: Baso % (Auto) 0.3 % (0.0-1.8) 02/01/20 10: Lymph # 0.9 K/mm3 (1.2-5.4) L 02/01/20 10: [place] # 0.7 K/mm3 (0.0-0.8) 02/01/20 10:28 Eos # 0.1 K/mm3 (0.0-0.4) 02/01/20 10: Baso # 0.0 K/mm3 (0.0-0.1) 02/01/20 10:28 Seg Neutrophils % 79.2 % (40.0-70.0) H 02/01/20 10:28 Seg Neutrophils # 6.5 K/mm3 (1.8-7.7) 02/01/20 10:28 Sodium 143 mmol/L (137-145) 02/01/20 10:28 Potassium 3.0 mmol/L (3.6-5.0) L 02/01/20 10:28 Chloride 101.2 mmol/L (98-107) 02/01/20 10:28 Carbon Dioxide 31 mmol/L (22-30) H 02/01/20 10:28 Anion Gap 14 mmol/L 02/01/20 10:28 BUN 8 mg/dL (7-17) 02/01/20 10:28 Creatinine 0.5 mg/dL (0.7-1.2) L 02/01/20 10:28 Estimated GFR > 60 ml/min 02/01/20 10:28 BUN/Creatinine Ratio 16 % 02/01/20 10:28 Glucose 137 mg/dL (65-100) H 02/01/20 10:28 Lactic Acid 1.40 mmol/L (0.7-2.0) 01/27/20 12:36 Calcium 8.6 mg/dL (8.4-10.2) 02/01/20 10:28 Total Bilirubin 0.70 mg/dL (0.1-1.2) 02/01/20 10:28 Direct Bilirubin 4.1 mg/dL (0-0.2) H 01/28/20 15:08 Indirect Bilirubin 1.0 mg/dL 01/28/20 15:08 AST 17 units/L (5-40) 02/01/20 10:28 ALT 56 units/L (7-56) 02/01/20 10:28 Alkaline Phosphatase 117 units/L (35-129) 02/01/20 10:28 Total Protein 6.1 g/dL (6.3-8.2) L 02/01/20 10:28 Albumin 3.2 g/dL (3.9-5) L 02/01/20 10:28 Albumin/Globulin Ratio 1.1 % 02/01/20 10:28 Lipase 122 units/L (13-60) H 02/01/20 04:38 Urine Color Yellow (Yellow) 01/27/20 16:59 Urine Turbidity Clear (Clear) 01/27/20 16:59 Urine pH 5.0 (5.0-7.0) 01/27/20 16:59 Ur Specific [place] 1.020 (1.003-1.030) 01/27/20 16:59 Urine Protein <15 mg/dl mg/dL (Negative) 01/27/20 16:59 Urine Glucose (UA) Neg mg/dL (Negative) 01/27/20 16:59 Urine Ketones Neg mg/dL (Negative) 01/27/20 16:59 Urine Blood Neg (Negative) 01/27/20 16:59 Urine Nitrite Neg (Negative) 01/27/20 16:59 Urine Bilirubin Neg (Negative) 01/27/20 16:59 Urine Urobilinogen < 2.0 mg/dL (<2.0) 01/27/20 16:59 Ur Leukocyte Esterase Neg (Negative) 01/27/20 16:59 Urine WBC (Auto) 2.0 /HPF (0.0-6.0) 01/27/20 16:59 Urine RBC (Auto) 2.0 /HPF (0.0-6.0) 01/27/20 16:59 U Epithel Cells (Auto) 2.0 /HPF (0-13.0) 01/27/20 16:59 Urine Mucus Few /HPF 01/27/20 16:59 Emerson/IV: Voiding Method Toilet IV Catheter Type [Right Hand] INT / Saline Lock IV Catheter Type [Right INT / Saline Lock Forearm] IV Catheter Type [Left INT / Saline Lock Antecubital] Active Medications - Current Medications Current Medications: Generic Name Dose Route Start Last Admin Trade Name Freq PRN Reason Stop Dose Admin Acetaminophen 650 mg 01/27/20 16:02 01/30/20 21:28 Tylenol PO 650 mg Q4H PRN Administration Pain MILD(1-3)/Fever >100.5/MIRELES Hydralazine HCl 10 mg 01/27/20 16:06 01/29/20 09:31 Apresoline IV 10 mg Q6HR PRN Administration Hypertension Hydromorphone HCl 1 mg 01/31/20 01:55 02/01/20 17:04 Dilaudid IV 1 mg Q3H PRN Administration Pain , Severe (7-10) Piperacillin Sod/Tazobactam Sod 4.5 gm in 100 mls @ 200 mls/hr 02/01/20 22:00 Zosyn/Ns 4.5gm/100ml IV Q8HR [facility] Protocol Ondansetron HCl 4 mg 01/27/20 16:02 Zofran IV Q8H PRN Nausea And Vomiting Sodium Chloride 10 ml 01/27/20 22:00 02/01/20 09:22 Sodium Chloride Flush Syringe 10 Ml IV 10 ml BID DENA Administration Sodium Chloride 10 ml 01/27/20 16:02 Sodium Chloride Flush Syringe 10 Ml IV PRN PRN LINE FLUSH
[2020-02-01] MEDS: PIPERACIL/TAZOBACTA 4.5/NS 100 4.5 GM/100 ML VIAL IV SCH (22:30)
[2020-02-02] MEDS: HYDROmorphone 1 MG/1 ML INJ IV PRN ×4 (03:46→20:41)
[2020-02-02] MEDS: PIPERACIL/TAZOBACTA 4.5/NS 100 4.5 GM/100 ML VIAL IV SCH ×2 (05:24→15:26)
[2020-02-02 06:13] LABS: Alanine Aminotransferase 39 units/L (7-56); Albumin 2.9 g/dL (3.9-5); BUN/Creatinine Ratio 12; Blood Urea Nitrogen 7 mg/dL (7-17); Calcium 8.6 mg/dL (8.4-10.2); Hemolysis Index 6
[2020-02-02] MEDS ORDERED: SCOPOLAMINE TRANSDERMAL PATCH 72 HR TD NR (10:00)
[2020-02-02] MEDS ORDERED: MIDAZOLAM 2 MG/2 ML INJ IV NR (10:00)
[2020-02-02] MEDS ORDERED: ONDANSETRON 4 MG/2 ML INJ ONE (10:39)
[2020-02-02] MEDS ORDERED: HYDROmorphone 1 MG/1 ML INJ ONE (10:39)
[2020-02-02] MEDS ORDERED: dexAMETHasone 20 MG/5 ML VIAL ONE (10:39)
[2020-02-02] MEDS ORDERED: LIDOCAINE MPF (2%) 20 MG/1 ML VIAL 5 ML ONE (10:39)
[2020-02-02] MEDS ORDERED: propofoL 200 MG/20 ML VIAL IV ONE (10:39)
[2020-02-02] MEDS ORDERED: ROCURONIUM 50 MG/5 ML INJ IV ONE ×2 (10:39→13:38)
--- NOTE | 2020-02-02 10:39 | Anesthesia Day of Surgery ---
Anesthesia Day of Surgery - Day of Surgery Patient Examined: Yes Patient H&P Reviewed: Yes Patient is NPO: Yes
--- NOTE | 2020-02-02 10:39 | Anesthesia Consultation ---
Anesthesia Consult and Med Hx Date of service: 02/02/20 - Airway Anesthetic Teeth Evaluation: Good ROM Head & Neck: Adequate Mental/Hyoid Distance: Adequate Mallampati Class: Class III Intubation Access Assessment: Possibly Difficult - Pulmonary Exam CTA: Yes - Cardiac Exam Cardiac Exam: RRR (grade 1/6 systolic murmur) - Pre-Operative Health Status ASA Pre-Surgery Classification: ASA3 Proposed Anesthetic Plan: General - Pulmonary Hx Smoking: No Hx Respiratory Symptoms: No - Cardiovascular System Hx Hypertension: Yes Hx Heart Attack/AMI: No Hx Percutaneous Transluminal Coronary Angioplasty (PTCA): No Hx Cardia Arrhythmia: No - Central Nervous System CVA: No - Gastrointestinal Hx Gastroesophageal Reflux Disease: No - Endocrine Hx Renal Disease: No Hx Liver Disease: No Hx Insulin Dependent Diabetes: No Hx Non-Insulin Dependent Diabetes: No Hx Thyroid Disease: No - Hematic Hx Anemia: No - Other Systems Hx Obesity: Yes (BMI 43) - Additional Comments Anesthesia Medical History Comments: No hx anesthetic complications. No recent N/V.
[2020-02-02] MEDS ORDERED: BUPIVACAINE/PF (0.5%) 5 MG/1 ML 30 ML VIAL INFILTRATI ONE ×2 (10:49→11:50)
[2020-02-02] MEDS ORDERED: LIDOCAINE (1%) 10 MG/1 ML VIAL 20 ML MDV ONE (10:49)
[2020-02-02] MEDS: LACTATED RINGERS 1,000 ML IV SCH ×2 (11:05→22:41)
[2020-02-02] MEDS ORDERED: LIDOCAINE (1%) 10 MG/1 ML VIAL 20 ML MDV INFILTRATI ONE (11:51)
[2020-02-02] MEDS ORDERED: WATER FOR IRRIG STERILE 1,500 ML BOTTLE IR ONE (11:51)
[2020-02-02] MEDS ORDERED: NEOSTIGMINE 10MG/10 ML INJ MDV ONE (13:35)
[2020-02-02] MEDS ORDERED: GLYCOPYRROLATE 0.4 MG/2 ML INJ ONE (13:35)
--- NOTE | 2020-02-02 14:06 | Post Operative Note ---
Date of procedure: 02/02/20 (dictation:[id number]) Pre-op diagnosis: gallstone pancreatitis Post-op diagnosis: same Findings: enlarged GB. marked edema and mild adhesions. IOC - small stones noted in distal duct - mobile. Procedure: lap francesca with IOC IVF 1200cc EBL min Anesthesia: GETA Surgeon: KANWAL STRATTON Estimated blood loss: minimal Pathology: list (gallbladder) Specimen disposition: to lab Condition: stable Disposition: PACU
[2020-02-02] MEDS ORDERED: HYDROcodone/ACETAMINOPHEN 5-325 MG TAB PO PRN (14:07)
--- NOTE | 2020-02-02 16:11 | Fluoroscopy Report ---
FLUOROSCOPY CHOLANGIOGRAM OPERATIVE HISTORY: Gallstone pancreatitis FINDINGS: 23 seconds of fluoroscopy time was provided by radiology during intraoperative cholangiogra m. 2 fluoroscopic images are presented demonstrating contrast agent within the common bile duct, cyst ic duct and intrahepatic ducts. Cholecystectomy has been performed. There is no evidence for biliary leak or filling defect. Signer Name: August Oreilly Jr, MD Signed: 02/02/2020 4:06 PM Workstation Name: [id number]
--- NOTE | 2020-02-02 17:10 | Event Note ---
Date: 02/02/20 Routine postoperative check. Patient reports that she is doing well and is appreciative for our help. Patient looks to be doing well. She is sitting up on the bedside. Discussed the case with Dr. Juarez from gastroenterology. As there are stones still in the duct, he would like to do an ERCP. He will attempt to do it tomorrow if there is time in the GI lab. Otherwise, he will bring her back as an outpatient on . In case he is able to get it done tomorrow, we will make her n.p.o. tonight. Patient understands the plan.
--- NOTE | 2020-02-02 17:24 | Operative Report ---
PREOPERATIVE DIAGNOSIS: Gallstone pancreatitis. POSTOPERATIVE DIAGNOSIS: Gallstone pancreatitis. PROCEDURE: Laparoscopic cholecystectomy with intraoperative cholangiogram. ATTENDING PHYSICIAN: Thalia Hargrove MD ANESTHESIA: General. ESTIMATED BLOOD LOSS: Minimal. FLUIDS: 1200 mL. FINDINGS: Long cystic duct on intraoperative cholangiogram, common bile duct was dilated, multiple mobile stones were noted in the distal aspect of the common duct. We had good filling of the hepatic ducts. Gallbladder was noted to be enlarged with mild adhesions to the bed as well as mild edema. SPECIMENS: Gallbladder. DRAINS: None. COMPLICATIONS: None. DISPOSITION: Stable, transferred to Recovery Room. INDICATIONS: This is a 54-year-old female who presented to the hospital with acute onset of severe epigastric pain. The patient was found to have pancreatitis, most likely related to her cholelithiasis. Plan was to do a cholecystectomy once the pancreatitis to calm down. Procedure, risks, benefits were explained to the patient. Risks included but were not limited to infection, bleeding, pain, injury to surrounding structures, possible need for open surgery, possible need for further procedures in the future. The patient understood and consented. OPERATIVE NOTE: The patient was brought to the operating room and placed on the table in supine position. After adequate general anesthesia was established, the patient was prepped and draped in usual sterile fashion. SCDs were placed. The patient was already on antibiotics. Timeout was called. I began by placing a Veress needle at Mejia's point in the left upper quadrant. I was able to insufflate on the first attempt. Using the Optiview technique, I placed a 5 mm port on the right side of the abdomen. We entered the peritoneal cavity safely. Area underneath the Veress needle was not injured. Veress needle was removed. We placed two more 5 mm ports under direct vision along the right subcostal margin as well as a 12 mm port at the umbilicus. A closing stitch had been placed before, had a 2-0 PDS suture. To be used to close the fascia at the end of the case, a 12 mm port was then inserted. The patient was positioned properly. Gallbladder was identified and lifted over the liver edge. We dissected out the triangle of [place]ot. There were dense adhesions over the gallbladder as well as around the triangle, we had to proceed carefully, but we were able to get a good critical view as well as dissect out the cystic artery and the cystic duct. A clip was placed on the cystic duct proximal in relation to gallbladder, small opening was made. Bile was easily seen coming out. Catheter was inserted and clamped with Dean clamp. It flushed easily. Cholangiogram was done. The findings were as noted above. Catheter was then removed. Three clips were placed distally. As we knew, we had a very long cystic duct. Based on the cholangiogram, duct was divided. Clip was placed distally on cystic artery in relation to the gallbladder and artery was divided. We then removed the gallbladder from the bed with Harmonic scalpel. We had a nice clean dissection. Specimen was placed in EndoCatch bag left on the side. We examined the bed and the clips very carefully. All were in place. There was no bile or blood leaking. Everything looked very good. We then proceeded to remove the EndoCatch bag from the 12 mm port site. Unfortunately, because of the large size of the gallbladder, we had to stretch out the fascia. Once we were able to remove it. We ended up having to do an open repair because we had to make the opening moderately larger. We used a 2-0 PDS suture to close the fascia with [id number] stitch. We did place an additional stitch just to get a better closure. We checked again with the camera. Everything looked good from the inside. There was no injury or incorporation of bowel or omentum into the closure. Abdomen was completely desufflated. Ports were removed. Additional local was injected, 4-0 Monocryl subcuticular stitches were then placed. Skin was cleaned and dried. Dermabond was placed. The patient tolerated the procedure well. All counts were correct at the end of the case. JOB# [id number] JAYLENE/ELKIN GOMES
--- NOTE | 2020-02-02 20:56 | Progress Note ---
Assessment and Plan - Patient Problems (1) Acute gallstone pancreatitis Current Visit: Yes Status: Acute Plan to address problem: Surgical team consulted, IV fluid resuscitation therapy, patient is pending surgical intervention today as per surgical team, Pancreatitis resolved. Patient is tolerating clear liquid diet. Advance as tolerated as per surgical team. (2) Accelerated hypertension Current Visit: Yes Status: Acute Plan to address problem: IV hydralazine every 6 hours as needed for systolic blood pressure greater than or equal to 155, supportive care (3) Elevated LFTs Current Visit: Yes Status: Acute Plan to address problem: CMP, supportive care, repeat CMP in a.m. (4) Nausea & vomiting Current Visit: Yes Status: Acute Qualifiers: Vomiting type: unspecified Vomiting Intractability: non-intractable Qualified Code(s): R11.2 - Nausea with vomiting, unspecified Plan to address problem: Zofran, as needed, bowel rest, IV fluid resuscitation therapy, supportive care. (5) Morbid (severe) obesity due to excess calories Current Visit: Yes Status: Acute Plan to address problem: Balanced diet, increased physical activity at discharge, (6) SIRS due to infectious process with acute organ dysfunction Current Visit: Yes Status: Acute (7) DVT prophylaxis Current Visit: Yes Status: Acute History Interval history: 54 YO Female HD #7 with Gallstone Pancreatitis, Elevated LFT's, complicated by nausea and vomiting. Patient states that her pain is better today. Patient denies fever, chills, chest pain, palpitations, productive cough, recent ill contacts. Patient tolerating clear liquids today. Patient states that her nausea and vomiting is improved. Patient liver function tests are improving and patient bilirubin has normalized. Surgery team consulted. Patient is pending surgical intervention today. Pt pancreatitis has resolved. Hospitalist Physical - Constitutional Vitals: Temp Pulse Resp BP Pulse Ox 97.7 F 107 H 18 144/73 88 02/02/20 17:11 02/02/20 17:11 02/02/20 17:11 02/02/20 17:11 02/02/20 17:11 General appearance: Present: no acute distress, obese - EENT Eyes: Present: PERRL, EOM intact ENT: hearing intact - Neck Neck: Present: supple - Respiratory Respiratory effort: normal Respiratory: bilateral: CTA - Cardiovascular Rhythm: regular Heart Sounds: Present: S1 & S2 Peripheral Pulses: within normal limits - Abdominal General gastrointestinal: soft, tender, non-distended - Integumentary Integumentary: Present: clear, warm, dry - Psychiatric Psychiatric: appropriate mood/affect, cooperative Results - Labs CBC & Chem 7: 02/01/20 10:28 02/02/20 04:46 Labs: Laboratory Last Values WBC 8.2 K/mm3 (4.5-11.0) 02/01/20 10: RBC 4.34 M/mm3 (3.65-5.03) 02/01/20 10:28 Hgb 12.0 gm/dl (10.1-14.3) 02/01/20 10:28 Hct 35.7 % (30.3-42.9) 02/01/20 10: MCV 82 fl (79-97) 02/01/20 10: MCH 28 pg (28-32) 02/01/20 10: MCHC 34 % (30-34) 02/01/20 10: RDW 14.6 % (13.2-15.2) 02/01/20 10:28 Plt Count 275 K/mm3 (140-440) 02/01/20 10:28 Lymph % (Auto) 11.3 % (13.4-35.0) L 02/01/20 10:28 Will % (Auto) 7.9 % (0.0-7.3) H 02/01/20 10:28 Eos % (Auto) 1.3 % (0.0-4.3) 02/01/20 10: Baso % (Auto) 0.3 % (0.0-1.8) 02/01/20 10:28 Lymph # 0.9 K/mm3 (1.2-5.4) L 02/01/20 10:28 Will # 0.7 K/mm3 (0.0-0.8) 02/01/20 10:28 Eos # 0.1 K/mm3 (0.0-0.4) 02/01/20 10:28 Baso # 0.0 K/mm3 (0.0-0.1) 02/01/20 10:28 Seg Neutrophils % 79.2 % (40.0-70.0) H 02/01/20 10:28 Seg Neutrophils # 6.5 K/mm3 (1.8-7.7) 02/01/20 10:28 Sodium 142 mmol/L (137-145) 02/02/20 04:46 Potassium 3.4 mmol/L (3.6-5.0) L 02/02/20 04:46 Chloride 99.4 mmol/L (98-107) 02/02/20 04:46 Carbon Dioxide 31 mmol/L (22-30) H 02/02/20 04:46 Anion Gap 15 mmol/L 02/02/20 04:46 BUN 7 mg/dL (7-17) 02/02/20 04:46 Creatinine 0.6 mg/dL (0.7-1.2) L 02/02/20 04:46 Estimated GFR > 60 ml/min 02/02/20 04:46 BUN/Creatinine Ratio 12 % 02/02/20 04:46 Glucose 121 mg/dL (65-100) H 02/02/20 04:46 Lactic Acid 1.40 mmol/L (0.7-2.0) 01/27/20 12:36 Calcium 8.6 mg/dL (8.4-10.2) 02/02/20 04:46 Total Bilirubin 0.80 mg/dL (0.1-1.2) 02/02/20 04:46 Direct Bilirubin 4.1 mg/dL (0-0.2) H 01/28/20 15:08 Indirect Bilirubin 1.0 mg/dL 01/28/20 15:08 AST 15 units/L (5-40) 02/02/20 04:46 ALT 39 units/L (7-56) 02/02/20 04:46 Alkaline Phosphatase 106 units/L (35-129) 02/02/20 04:46 Total Protein 6.8 g/dL (6.3-8.2) 02/02/20 04:46 Albumin 2.9 g/dL (3.9-5) L 02/02/20 04:46 Albumin/Globulin Ratio 0.7 % 02/02/20 04:46 Lipase 109 units/L (13-60) H 02/02/20 04:46 Urine Color Yellow (Yellow) 01/27/20 16:59 Urine Turbidity Clear (Clear) 01/27/20 16:59 Urine pH 5.0 (5.0-7.0) 01/27/20 16:59 Ur Specific [place] 1.020 (1.003-1.030) 01/27/20 16:59 Urine Protein <15 mg/dl mg/dL (Negative) 01/27/20 16:59 Urine Glucose (UA) Neg mg/dL (Negative) 01/27/20 16:59 Urine Ketones Neg mg/dL (Negative) 01/27/20 16:59 Urine Blood Neg (Negative) 01/27/20 16:59 Urine Nitrite Neg (Negative) 01/27/20 16:59 Urine Bilirubin Neg (Negative) 01/27/20 16:59 Urine Urobilinogen < 2.0 mg/dL (<2.0) 01/27/20 16:59 Ur Leukocyte Esterase Neg (Negative) 01/27/20 16:59 Urine WBC (Auto) 2.0 /HPF (0.0-6.0) 01/27/20 16:59 Urine RBC (Auto) 2.0 /HPF (0.0-6.0) 01/27/20 16:59 U Epithel Cells (Auto) 2.0 /HPF (0-13.0) 01/27/20 16:59 Urine Mucus Few /HPF 01/27/20 16:59 Emerson/IV: Voiding Method Toilet IV Catheter Type [Left Hand] INT / Saline Lock IV Catheter Type [Right Hand] INT / Saline Lock IV Catheter Type [Right INT / Saline Lock Forearm] IV Catheter Type [Left INT / Saline Lock Antecubital] Active Medications - Current Medications Current Medications: Generic Name Dose Route Start Last Admin Trade Name Freq PRN Reason Stop Dose Admin Acetaminophen 650 mg 01/27/20 16:02 01/30/20 21:28 Tylenol PO 650 mg Q4H PRN Administration Pain MILD(1-3)/Fever >100.5/MIRELES Acetaminophen/Hydrocodone Bitart 2 each 02/02/20 14:07 [place] 5/325 PO Q6H PRN Pain, Moderate (4-6) Hydralazine HCl 10 mg 01/27/20 16:06 01/29/20 09:31 Apresoline IV 10 mg Q6HR PRN Administration Hypertension Hydromorphone HCl 1 mg 01/31/20 01:55 02/02/20 20:41 Dilaudid IV 1 mg Q3H PRN Administration Pain , Severe (7-10) Hydromorphone HCl 0.5 mg 02/02/20 09:11 02/02/20 14:15 Dilaudid IV 02/02/20 23:00 0.5 mg Q10MIN PRN Administration Pain , Severe (7-10) Lactated Ringer's 1,000 mls @ 100 mls/hr 02/02/20 10:00 02/02/20 11:05 Lactated Ringers IV 100 mls/hr DIRECT DENA Administration Midazolam HCl 2 mg 02/02/20 10:00 02/02/20 11:20 Versed IV 02/02/20 23:59 2 mg PREOP NR Administration Ondansetron HCl 4 mg 01/27/20 16:02 Zofran IV Q8H PRN Nausea And Vomiting Scopolamine 1 each 02/02/20 10:00 02/02/20 11:05 Transderm-Scop TD 02/02/20 23:00 1 each PREOP NR Administration Sodium Chloride 10 ml 01/27/20 22:00 02/02/20 12:17 Sodium Chloride Flush Syringe 10 Ml IV Not Given BID DENA Sodium Chloride 10 ml 01/27/20 16:02 Sodium Chloride Flush Syringe 10 Ml IV PRN PRN LINE FLUSH
[2020-02-03] MEDS: HYDROmorphone 1 MG/1 ML INJ IV PRN ×3 (02:14→20:29)
[2020-02-03] MEDS ORDERED: SODIUM CHLORIDE 0.9% 1000 ML 1,000 ML IV SCH (11:15)
[2020-02-03] MEDS ORDERED: SODIUM CHLORIDE 0.9% 1000 ML 1,000 ML ONE (12:24)
[2020-02-03] MEDS ORDERED: WATER FOR IRRIG STERILE 1,000 ML BOTTLE ONE (12:29)
[2020-02-03] MEDS ORDERED: WATER FOR IRRIG STERILE 250 ML BOTTLE IR ONE (12:29)
[2020-02-03] MEDS ORDERED: GLUCAGON (HUMAN RECOMBINANT) 1 MG/ML INJ ONE (12:30)
--- NOTE | 2020-02-03 12:42 | Post Anesthesia Evaluation ---
- Post Anesthesia Evaluation Patient Participated: Yes Airway Patent: Yes Stable Respiratory Function: Yes Nausea/Vomiting: No Temp > 96.8F: Yes Pain Manageable: Yes Adequeate Hydration: Yes Anesthesia Complications: No Other Comments: Late entry for anesthetic completed 02/02/20.
[2020-02-03] MEDS ORDERED: SODIUM CHLORIDE 0.9% 100 ML ONE (13:07)
--- NOTE | 2020-02-03 13:07 | Anesthesia Day of Surgery ---
Anesthesia Day of Surgery - Day of Surgery Patient Examined: Yes Patient H&P Reviewed: Yes Patient is NPO: Yes
--- NOTE | 2020-02-03 13:08 | Event Note ---
Date: 02/03/20 (ERCP) PMH obesity and HTN POD 1 s/p lap francesca now scheduled for ERCP. No anesthetic complications from previous surgery. NPO >8hrs. ASA3, plan MAC anesthetic.
[2020-02-03] MEDS ORDERED: LIDOCAINE MPF (2%) 20 MG/1 ML VIAL 5 ML ONE (13:25)
[2020-02-03] MEDS ORDERED: ONDANSETRON 4 MG/2 ML INJ ONE (13:25)
[2020-02-03] MEDS ORDERED: HYDROmorphone 1 MG/1 ML INJ ONE (13:26)
[2020-02-03] MEDS ORDERED: propofoL 200 MG/20 ML VIAL IV ONE ×2 (13:26)
[2020-02-03] MEDS ORDERED: KETAMINE/STERILE WATER 50 MG/ML SYRINGE ONE (13:27)
--- NOTE | 2020-02-03 14:06 | Event Note ---
Date: 02/03/20 Patient not in her room at the time of my visit. If she is tolerating a diet and her pain is tolerable, she is okay for discharge from my perspective. She should follow-up with me in the office in about 2 weeks. Please call with any questions.
--- NOTE | 2020-02-03 14:25 | Post Operative Note ---
Pre-op diagnosis: Stones in CBD on IOC Post-op diagnosis: other (Dilated CBD, no stones noted, probable papillary stenosis) Findings: 1. Normal PD in course 2. CBD dilated to 14 mm, s/p CCY, no clear filling defects. Sphincterotomy done to facilitate access to CBD, 8 mm. Duct swept with 12 mm balloon with no filling defects noted at end of procedure, and no stones. Procedure: ERCP with sphincterotomy Anesthesia: MAC Surgeon: CHRISTINE NAQVI Estimated blood loss: none Pathology: none Condition: stable Disposition: floor (Monitor for complications, and if does well, may D/C to home in AM.)
--- NOTE | 2020-02-03 15:03 | Operative Report ---
PROCEDURE: ERCP with sphincterotomy. PREOPERATIVE DIAGNOSIS: Abnormal intraoperative cholangiogram with stones and bile duct. 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 SEDATION: MAC by Anesthesia. HISTORY: The patient is a 54-year-old woman who was admitted with gallstone pancreatitis. She was improved and underwent a cholecystectomy yesterday, which showed an abnormal intraoperative cholangiogram with filling defects. She had an MRCP done previously that was also suspicious for stones in the bile duct. DESCRIPTION OF PROCEDURE: Indications, risks, and benefits were explained and consent was obtained. The patient was placed on abdomen on fluoroscopy table and sedated. Video duodenoscope was passed through the mouth and oropharynx into the descending duodenum. Scope was then gradually withdrawn with close inspection of mucosa until the major papilla was visualized. Selective cannulation of the pancreatic duct was initially achieved after repeated attempts with a guidewire and sphincterotome. This was normal in course. A precut papillotomy was done with the wire in the pancreatic duct and ultimately biliary tree was accessed. FINDINGS: 1. Normal appearing major papilla. 2. Pancreatic duct is normal in course. 3. Common bile duct is dilated to approximately 14 mm with no obvious filling defects noted. It is status post cholecystectomy. The duct was swept x 2 using a 12 mm balloon with no clear stone debris and no residual filling defects identified. The patient tolerated the procedure well without immediate complication. IMPRESSION: 1. Dilated common bile duct. 2. Difficult biliary access, consistent with papillary stenosis. 3. Duct swept x 2 with no clear stone debris noted. No filling defects were noted residually at the end of the procedure. RECOMMENDATIONS: 1. Monitor for complications. 2. Advance diet initially to clear liquids and may discharge to home if does well. JOB# [id number] HRC/NTS
--- NOTE | 2020-02-03 15:14 | Post Anesthesia Evaluation ---
- Post Anesthesia Evaluation Patient Participated: Yes Airway Patent: Yes Stable Respiratory Function: Yes Nausea/Vomiting: No Temp > 96.8F: Yes Pain Manageable: Yes Adequeate Hydration: Yes Anesthesia Complications: No
--- NOTE | 2020-02-03 15:17 | Fluoroscopy Report ---
Fluoroscopy ERCP HISTORY: Choledocholithiasis. FINDINGS: 1.6 minutes of fluoroscopy time was provided by radiology during ERCP by gastroenterology. 6 fluoroscopic images are presented. The images demonstrate balloon sweep of the common bile duct to remove stones. No obvious residual stones are demonstrated on the final image. Please correlate with the procedural report as needed. Signer Name: August Oreilly Jr, MD Signed: 02/03/2020 3:13 PM Workstation Name: [id number]
--- NOTE | 2020-02-03 16:52 | Progress Note ---
Assessment and Plan - Patient Problems (1) Acute gallstone pancreatitis Current Visit: Yes Status: Acute Plan to address problem: Surgical team consulted, IV fluid resuscitation therapy, patient is pending S/P laparoscopic cholecystectomy with intraoperative cholangiogram with residual stones. Patient is also status post ERCP with sphincterotomy as per GI service. Conservative care, advance diet as tolerated, discharge planning in a.m. if patient is able to tolerate diet and pain is controlled. (2) Accelerated hypertension Current Visit: Yes Status: Acute Plan to address problem: IV hydralazine every 6 hours as needed for systolic blood pressure greater than or equal to 155, supportive care (3) Elevated LFTs Current Visit: Yes Status: Acute Plan to address problem: CMP, supportive care, repeat CMP in a.m. (4) Nausea & vomiting Current Visit: Yes Status: Acute Qualifiers: Vomiting type: unspecified Vomiting Intractability: non-intractable Qualified Code(s): R11.2 - Nausea with vomiting, unspecified Plan to address problem: Zofran, as needed, bowel rest, IV fluid resuscitation therapy, supportive care. (5) Morbid (severe) obesity due to excess calories Current Visit: Yes Status: Acute Plan to address problem: Balanced diet, increased physical activity at discharge, (6) SIRS due to infectious process with acute organ dysfunction Current Visit: Yes Status: Acute Plan to address problem: CBC, CMP, IV antibiotic therapy, IVF resuscitation therapy (7) DVT prophylaxis Current Visit: Yes Status: Acute Plan to address problem: SCD to bilateral lower extremities while in bed, patient is ambulatory. History Interval history: 54 YO Female HD #8 with Gallstone Pancreatitis, Elevated LFT's, complicated by nausea and vomiting. Patient states that her pain is better today. Patient denies fever, chills, chest pain, palpitations, productive cough, recent ill contacts. Patient tolerating clear liquids today. Patient states that her nausea and vomiting is improved. S/P Lap Cholecystectomy as well as ERCP with Sphincterotomy today as per GI team. Patient pending discharge in AM. Hospitalist Physical - Constitutional Vitals: Temp Pulse Resp BP Pulse Ox 98.4 F 74 16 152/96 98 02/03/20 14:35 02/03/20 15:12 02/03/20 15:12 02/03/20 15:12 02/03/20 15:12 General appearance: Present: no acute distress, obese - EENT Eyes: Present: PERRL ENT: hearing intact - Neck Neck: Present: supple - Respiratory Respiratory effort: normal Respiratory: bilateral: CTA - Cardiovascular Rhythm: regular Heart Sounds: Present: S1 & S2 - Extremities Extremities: no ischemia Peripheral Pulses: within normal limits - Abdominal General gastrointestinal: soft, tender, non-distended - Integumentary Integumentary: Present: clear, erythema - Psychiatric Psychiatric: appropriate mood/affect, cooperative - Neurologic Neurologic: CNII-XII intact Results - Labs CBC & Chem 7: 02/01/20 10:28 02/02/20 04:46 Labs: Laboratory Last Values WBC 8.2 K/mm3 (4.5-11.0) 02/01/20 10: RBC 4.34 M/mm3 (3.65-5.03) 02/01/20 10: Hgb 12.0 gm/dl (10.1-14.3) 02/01/20 10: Hct 35.7 % (30.3-42.9) 02/01/20 10: MCV 82 fl (79-97) 02/01/20 10:28 MCH 28 pg (28-32) 02/01/20 10: MCHC 34 % (30-34) 02/01/20 10: RDW 14.6 % (13.2-15.2) 02/01/20 10: Plt Count 275 K/mm3 (140-440) 02/01/20 10: Lymph % (Auto) 11.3 % (13.4-35.0) L 02/01/20 10:28 [place] % (Auto) 7.9 % (0.0-7.3) H 02/01/20 10:28 Eos % (Auto) 1.3 % (0.0-4.3) 02/01/20 10: Baso % (Auto) 0.3 % (0.0-1.8) 02/01/20 10: Lymph # 0.9 K/mm3 (1.2-5.4) L 02/01/20 10:28 [place] # 0.7 K/mm3 (0.0-0.8) 02/01/20 10:28 Eos # 0.1 K/mm3 (0.0-0.4) 02/01/20 10:28 Baso # 0.0 K/mm3 (0.0-0.1) 02/01/20 10:28 Seg Neutrophils % 79.2 % (40.0-70.0) H 02/01/20 10:28 Seg Neutrophils # 6.5 K/mm3 (1.8-7.7) 02/01/20 10:28 Sodium 142 mmol/L (137-145) 02/02/20 04:46 Potassium 3.4 mmol/L (3.6-5.0) L 02/02/20 04:46 Chloride 99.4 mmol/L (98-107) 02/02/20 04:46 Carbon Dioxide 31 mmol/L (22-30) H 02/02/20 04:46 Anion Gap 15 mmol/L 02/02/20 04:46 BUN 7 mg/dL (7-17) 02/02/20 04:46 Creatinine 0.6 mg/dL (0.7-1.2) L 02/02/20 04:46 Estimated GFR > 60 ml/min 02/02/20 04:46 BUN/Creatinine Ratio 12 % 02/02/20 04:46 Glucose 121 mg/dL (65-100) H 02/02/20 04:46 Lactic Acid 1.40 mmol/L (0.7-2.0) 01/27/20 12:36 Calcium 8.6 mg/dL (8.4-10.2) 02/02/20 04:46 Total Bilirubin 0.80 mg/dL (0.1-1.2) 02/02/20 04:46 Direct Bilirubin 4.1 mg/dL (0-0.2) H 01/28/20 15:08 Indirect Bilirubin 1.0 mg/dL 01/28/20 15:08 AST 15 units/L (5-40) 02/02/20 04:46 ALT 39 units/L (7-56) 02/02/20 04:46 Alkaline Phosphatase 106 units/L (35-129) 02/02/20 04:46 Total Protein 6.8 g/dL (6.3-8.2) 02/02/20 04:46 Albumin 2.9 g/dL (3.9-5) L 02/02/20 04:46 Albumin/Globulin Ratio 0.7 % 02/02/20 04:46 Lipase 109 units/L (13-60) H 02/02/20 04:46 Urine Color Yellow (Yellow) 01/27/20 16:59 Urine Turbidity Clear (Clear) 01/27/20 16:59 Urine pH 5.0 (5.0-7.0) 01/27/20 16:59 Ur Specific [place] 1.020 (1.003-1.030) 01/27/20 16:59 Urine Protein <15 mg/dl mg/dL (Negative) 01/27/20 16:59 Urine Glucose (UA) Neg mg/dL (Negative) 01/27/20 16:59 Urine Ketones Neg mg/dL (Negative) 01/27/20 16:59 Urine Blood Neg (Negative) 01/27/20 16:59 Urine Nitrite Neg (Negative) 01/27/20 16:59 Urine Bilirubin Neg (Negative) 01/27/20 16:59 Urine Urobilinogen < 2.0 mg/dL (<2.0) 01/27/20 16:59 Ur Leukocyte Esterase Neg (Negative) 01/27/20 16:59 Urine WBC (Auto) 2.0 /HPF (0.0-6.0) 01/27/20 16:59 Urine RBC (Auto) 2.0 /HPF (0.0-6.0) 01/27/20 16:59 U Epithel Cells (Auto) 2.0 /HPF (0-13.0) 01/27/20 16:59 Urine Mucus Few /HPF 01/27/20 16:59 Emerson/IV: Voiding Method Toilet IV Catheter Type [Left Hand] INT / Saline Lock IV Catheter Type [Right Hand] INT / Saline Lock IV Catheter Type [Right INT / Saline Lock Forearm] IV Catheter Type [Left INT / Saline Lock Antecubital] Active Medications - Current Medications Current Medications: Generic Name Dose Route Start Last Admin Trade Name Freq PRN Reason Stop Dose Admin Acetaminophen 650 mg 01/27/20 16:02 01/30/20 21:28 Tylenol PO 650 mg Q4H PRN Administration Pain MILD(1-3)/Fever >100.5/MIRELES Acetaminophen/Hydrocodone Bitart 2 each 02/02/20 14:07 [place] 5/325 PO Q6H PRN Pain, Moderate (4-6) Hydralazine HCl 10 mg 01/27/20 16:06 01/29/20 09:31 Apresoline IV 10 mg Q6HR PRN Administration Hypertension Hydromorphone HCl 1 mg 01/31/20 01:55 02/03/20 11:15 Dilaudid IV 1 mg Q3H PRN Administration Pain , Severe (7-10) Lactated Ringer's 1,000 mls @ 100 mls/hr 02/02/20 10:00 02/02/20 22:41 Lactated Ringers IV 100 mls/hr DIRECT DENA Administration Sodium Chloride 1,000 mls @ 50 mls/hr 02/03/20 11:15 Nacl 0.9% 1000 Ml IV DIRECT DENA Ondansetron HCl 4 mg 01/27/20 16:02 Zofran IV Q8H PRN Nausea And Vomiting Sodium Chloride 10 ml 01/27/20 22:00 02/02/20 22:33 Sodium Chloride Flush Syringe 10 Ml IV 10 ml BID DENA Administration Sodium Chloride 10 ml 01/27/20 16:02 Sodium Chloride Flush Syringe 10 Ml IV PRN PRN LINE FLUSH Nutrition/Malnutrition Assess - Dietary Evaluation Nutrition/Malnutrition Findings: Nutrition Notes Start: 02/03/20 12:33 Freq: Status: Active Protocol: Document 02/03/20 12:33 LP (Rec: 02/03/20 12:35 LP [id number]) Nutrition Notes Need for Assessment generated from: LOS Initial or Follow up Brief Note Subjective/Other Information Screen for LOS. Pt states eating well [employer] and now. Nutrition Intervention Revisit per MD consult or patient Sign Off request:
[2020-02-03] MEDS: hydrALAZINE 20 MG/1 ML INJ IV PRN (23:51)
[2020-02-04] MEDS: HYDROmorphone 1 MG/1 ML INJ IV PRN (01:16)
[2020-02-04 06:19] VITALS: BP 144/70
--- NOTE | 2020-02-04 09:55 | Progress Note ---
Assessment and Plan 1. Abnormal IOC - normal ERCP, with probable papillary stenosis. - no complications post-ERCP 2. Gallstone pancreatitis - resolved clinically. Will sign off. May D/C home from GI standpoint. No need for GI follow up. Subjective Date of service: 02/04/20 Principal diagnosis: biliary pancreatitis Interval history: Pt doing well. Ac po well. No abd pain, N/V. Objective - Constitutional Vitals: Vital Signs - 12hr 02/03/20 02/03/20 02/04/20 22:00 23:51 01:16 Temperature Pulse Rate 92 H Pulse Rate [ 90 Apical] Respiratory 18 Rate Blood Pressure 174/75 Blood Pressure [Left] O2 Sat by Pulse 94 Oximetry 02/04/20 02/04/20 02/04/20 03:00 04:46 06:18 Temperature 99.2 F 99 F Pulse Rate 88 86 86 Pulse Rate [ Apical] Respiratory 18 18 Rate Blood Pressure 146/70 Blood Pressure 144/68 144/70 [Left] O2 Sat by Pulse 98 93 99 Oximetry General appearance: Present: no acute distress - EENT Eyes: PERRL, EOM intact ENT: hearing intact - Respiratory Respiratory effort: normal - Gastrointestinal General gastrointestinal: Present: soft, non-tender - Labs CBC & Chem 7: 02/01/20 10:28 02/02/20 04:46 Medications & Allergies - Medications Allergies/Adverse Reactions: Allergies No Known Allergies Allergy (Unverified 03/30/14 11:46) Home Medications: Home Medications Medication Instructions Recorded Confirmed Last Taken Type Triamterene-Hctz 37.5-25 mg Cp 1 tab PO DAILY 01/27/20 01/27/20 1 Day Ago History ~01/26/20 Losartan Potassium 50 mg PO DAILY 02/03/20 02/03/20 01/25/20 History Active Medications: Generic Name Dose Route Start Last Admin Trade Name Freq PRN Reason Stop Dose Admin Acetaminophen 650 mg 01/27/20 16:02 01/30/20 21:28 Tylenol PO 650 mg Q4H PRN Administration Pain MILD(1-3)/Fever >100.5/MIRELES Acetaminophen/Hydrocodone Bitart 2 each 02/02/20 14:07 [place] 5/325 PO Q6H PRN Pain, Moderate (4-6) Hydralazine HCl 10 mg 01/27/20 16:06 02/03/20 23:51 Apresoline IV 10 mg Q6HR PRN Administration Hypertension Hydromorphone HCl 1 mg 01/31/20 01:55 02/04/20 01:16 Dilaudid IV 1 mg Q3H PRN Administration Pain , Severe (7-10) Lactated Ringer's 1,000 mls @ 100 mls/hr 02/02/20 10:00 02/02/20 22:41 Lactated Ringers IV 100 mls/hr DIRECT DENA Administration Sodium Chloride 1,000 mls @ 50 mls/hr 02/03/20 11:15 Nacl 0.9% 1000 Ml IV DIRECT DENA Ondansetron HCl 4 mg 01/27/20 16:02 Zofran IV Q8H PRN Nausea And Vomiting Sodium Chloride 10 ml 01/27/20 22:00 02/03/20 23:51 Sodium Chloride Flush Syringe 10 Ml IV 10 ml BID DENA Administration Sodium Chloride 10 ml 01/27/20 16:02 Sodium Chloride Flush Syringe 10 Ml IV PRN PRN LINE FLUSH
--- NOTE | 2020-02-04 10:59 | Discharge Summary ---
Providers - Providers Date of Admission: 01/27/20 16:02 Attending physician: MICHELLE MULLER 01/27/20 15:52 Consult to Physician [CONS] Stat Comment: MARCIAL Velasquez/DR WANG @[id number] Consulting Provider: GARY WANG Physician Instructions: Reason For Exam: elevated LFTs, lipase, pancreatitis 01/29/20 11:38 Consult to Physician [CONS] Routine Comment: Consulting Provider: DOREEN VIGIL Physician Instructions: Reason For Exam: gallstone pancreatitis Primary care physician: SUSANNAH WHITE Hospitalization Condition: Fair Hospital course: 54 YO Female presented to the ED for evaluation of abdominal pain. Patient stated that her pain began the night prior to presentation. Patient stated that pain was 10/10, constant, throbbing in nature, associated with nausea, and one episode of vomiting overnight. Patient acknowledged inability to ingest oral diet without worsening symptoms, patient also acknowledged normal bowel movement overnight. Patient transported to [facility] via private vehicle for further care and evaluation. Patient seen and evaluated in the emergency department. Lab and imaging studies reviewed. Patient underwent CT scan of the abdomen and pelvis and was found to have evidence of gallstone pancreatitis, as well as accelerated hypertension, and elevated liver function tests. Patient admitted to medical floor for further care due to increased risk of hepatic decompensation. GI team consulted in ED. Patient denied fever, chills, chest pain, palpitations, productive cough, skin rash, hematemesis, bright red blood per rectum, skin rash, recent ill contacts, alcohol use, NSAID use, or known exposure to COVID- 19. Patient treated with bowel rest, IV fluid resuscitation therapy, and supportive care. The patient symptoms worsened and did not improve with supportive care. On hospital day 2 the patient underwent MRCP which revealed pancreatitis as well as a filling the defect in the hepatobiliary ductal system. Surgical team consulted for possible surgical intervention. Patient treated for pancreatitis for multiple days and upon improvement of symptoms and partial resolution of the pancreatitis the patient was taken to the operating room by the surgical service for laparoscopic cholecystectomy with intraoperative cholangiogram. Patient convalesced well after surgical intervention. Gastroenterology team subsequently took patient to the operating room for ERCP with sphincterotomy. Patient diet advanced. On day of discharge the patient is medically optimized and back to usual state of health, tolerating oral feeds. Patient acknowledges flatus as well as bowel movements. Patient seen and evaluated prior to discharge but no significant new physical exam findings. Patient discharged home and instructed to follow-up with primary care physician within 3 to 5 days, GI team as instructed, as well as surgical team as instructed. 35 minutes dedicated to patient discharge and coordination of care. Disposition: DC-01 TO HOME OR SELFCARE - Discharge Diagnoses (1) Acute gallstone pancreatitis Status: Acute (2) Accelerated hypertension Status: Acute (3) Elevated LFTs Status: Acute (4) Nausea & vomiting Status: Acute Qualifiers: Vomiting type: unspecified Vomiting Intractability: non-intractable Qualified Code(s): R11.2 - Nausea with vomiting, unspecified (5) Morbid (severe) obesity due to excess calories Status: Acute (6) SIRS due to infectious process with acute organ dysfunction Status: Acute (7) DVT prophylaxis Status: Acute Core Measure Documentation - Palliative Care Palliative Care/ Comfort Measures: Not Applicable - Core Measures Any of the following diagnoses?: none Exam - Constitutional Vitals: Temp Pulse Resp BP Pulse Ox 99 F 86 18 144/70 99 02/04/20 06:18 02/04/20 06:18 02/04/20 06:18 02/04/20 06:18 02/04/20 06:18 General appearance: Present: no acute distress, well-nourished - EENT Eyes: Present: PERRL ENT: hearing intact, clear oral mucosa - Neck Neck: Present: supple, normal ROM - Respiratory Respiratory effort: normal Respiratory: bilateral: CTA - Cardiovascular Heart Sounds: Present: S1 & S2. Absent: rub, click - Extremities Extremities: pulses symmetrical, No edema Peripheral Pulses: within normal limits - Abdominal General gastrointestinal: Present: soft, non-tender, non-distended, normal bowel sounds Female genitourinary: Present: normal - Integumentary Integumentary: Present: clear, warm, dry - Musculoskeletal Musculoskeletal: gait normal, strength equal bilaterally - Psychiatric Psychiatric: appropriate mood/affect, intact judgment & insight - Neurologic Neurologic: CNII-XII intact, moves all extremities Plan Activity: advance as tolerated Diet: low fat, low cholesterol, low salt Special Instructions: record daily weights, record daily BP diary Follow up with: SUSANNAH WHITE MD [Primary Care Provider] - 3-5 Days Prescriptions: oxyCODONE /ACETAMINOPHEN [Percocet 5/325] 1 tab PO Q6HR PRN #25 tablet PRN Reason: Pain
== END 2020-02-04 11:55 | disposition home or self-care (01) | DRG 417 ==
LOC: ED 10:53 → 3A 16:02
PROVIDERS: ADMIT Internal Medicine; ATTEND Internal Medicine
PROC: 0FT44ZZ Resection of Gallbladder, Percutaneous Endoscopic Approach (ICD-10-PCS; principal; 2020-02-02)
PROC: BF131ZZ Fluoroscopy of Gallbladder and Bile Ducts using Low Osmolar Contrast (ICD-10-PCS; 2020-02-02)
PROC: 0F798ZZ Dilation of Common Bile Duct, Via Natural or Artificial Opening Endoscopic (ICD-10-PCS; 2020-02-03)
DX: K85.10 Biliary acute pancreatitis without necrosis or infection (principal); R65.11 Systemic inflammatory response syndrome (SIRS) of non-infectious origin with acute organ dysfunction; Z68.42 Body mass index [BMI] 45.0-49.9, adult; I10 Essential (primary) hypertension; E66.01 Morbid (severe) obesity due to excess calories; Z71.3 Dietary counseling and surveillance; Z90.710 Acquired absence of both cervix and uterus; Z82.49 Family history of ischemic heart disease and other diseases of the circulatory system
CPT/HCPCS: 36415; 74177; 74181; 74300; 74330; 80048; 80053; 80076; 81001; 82140; 83690; 85025; 88304; 94760; 96374; 96375; 96376; G0378; C1726; J0360; J1100; J1170; J1610; J2250; J2270; J2405; J2543; J2704; J2710; J7030; J7120; Q9967

== ENCOUNTER 2022-02-13 07:00 | Outpatient (CLI) | payer BC ==
--- NOTE | 2022-02-14 08:32 | Mammography Report ---
DIGITAL SCREENING MAMMOGRAM WITH CAD, 02/13/2022 CLINICAL INFORMATION / INDICATION: Routine screening mammography. TECHNIQUE: Digital bilateral 2D mammography was obtained in the craniocaudal and mediolateral obliqu e projections. This examination was interpreted with the benefit of Computer-Aided Detection analysis . COMPARISON: 07/16/2019, 07/01/2018, 07/11/2017 FINDINGS: Breast Density: The breasts are almost entirely fatty. No dominant mass, suspicious calcifications, or architectural distortion in either breast. There has been no significant interval change. IMPRESSION: No mammographic evidence of malignancy. Follow up recommendation: Routine yearly screening mammogram. BI-RADS Category 1: NEGATIVE A "normal" or negative report should not discourage follow up or biopsy of a clinically significant f inding. A written summary of these findings will be mailed to the patient. The patient will be entered into a mammography reporting system which will generate a reminder letter for the patient's next appointmen t at the appropriate interval. The [employer] recommends yearly mammograms starting at age 40 and continuing as l sarkis as a woman is in good health. Breast MRI is recommended for women with an approximate 20-25% or greater lifetime risk of breast cancer, including women with a strong family history of breast or ova racquel cancer or who have been treated for Hodgkin's disease. Signer Name: Yudy Schwab MD Signed: 02/14/2022 8:27 AM Workstation Name: [id number]
== END 2022-02-13 07:01 | disposition home or self-care (01) ==
LOC: MAMMO 07:00
PROVIDERS: ATTEND Family Medicine
DX: Z12.31 Encounter for screening mammogram for malignant neoplasm of breast (principal)
CPT/HCPCS: 77067